=== PATIENT | male | born 1945 | race Caucasian/White ===

== ENCOUNTER 2018-06-10 07:30 | Inpatient (IN) ==
[2018-06-13] MEDS ORDERED: Metoprolol Tartrate 25 MG Tablet PO SCH (05:00)
[2018-06-13] MEDS ORDERED: Heparin - SQ 10,000 UNITS/ML Vial ONE ×2 (06:16)
[2018-06-13] MEDS ORDERED: MethylPREDNISolone Sod Succinate Inj 125 MG/2 ML Vial ONE (06:16)
[2018-06-13] MEDS ORDERED: Metoprolol Tartrate 25 MG Tablet PO ONE (06:57)
[2018-06-13] MEDS ORDERED: Chlorhexidine Gluconate 2% 1 Pack (2 Cloths) TOPICAL ONE (06:57)
[2018-06-13] MEDS ORDERED: Sodium Chlor 0.9% Inj 500 ML IV.SIG SCH (07:00)
[2018-06-13] MEDS ORDERED: Dextrose 50% in Water 50 ML Vial IV.PUSH PRN ×2 (07:01→12:15)
[2018-06-13] MEDS ORDERED: Insulin Regular (For Infusion) 100 UNIT in Sodium Chlor 0.9% Inj 99 ML IV.CONT PRN ×2 (07:01→12:15)
[2018-06-13] MEDS ORDERED: Chlorhexidine 4% Topical 120 APPLIC/120 ML Bottle TOPICAL SCH (07:15)
[2018-06-13] MEDS ORDERED: Sodium Chloride 0.9% Irr Bot 500 ML, ceFAZolin Inj 500 MG IRRIGATION SCH ×2 (07:15)
[2018-06-13] MEDS ORDERED: Sodium Chlor 0.9% Inj 77.5 ML, Papaverine Inj 60 MG, Nitroglycerin Inj 100 MCG, dilTIAZ... IRRIGATION SCH ×3 (07:15)
[2018-06-13] MEDS ORDERED: Cardioplegic Irr Soln 2,000 ML IRRIGATION ONE (07:27)
[2018-06-13] MEDS ORDERED: Potassium Chloride Inj 40 MEQ/20 ML Vial ONE (07:29)
[2018-06-13] MEDS ORDERED: Albumin Human 25% Inj 50 ML IV.SIG ONE (07:30)
[2018-06-13] MEDS ORDERED: Heparin 10,000 UNITS/10 ML Vial (for IV use) ONE (07:30)
[2018-06-13] MEDS ORDERED: fentaNYL Citrate Inj 1,000 MCG/20 ML Vial ONE (07:44)
[2018-06-13] MEDS ORDERED: Sugammadex Inj 200 MG/2 ML Vial IV.PUSH ONE (07:44)
[2018-06-13 07:48] LABS: Calcium 8.4 mg/dL (8.5-10.1); Carbon Dioxide 27.8 meq/L (21.0-32.0); Potassium 4.1 meq/L (3.5-5.1)
[2018-06-13] MEDS ORDERED: ceFAZolin Inj 2,000 MG in Sodium Chlor 0.9% Inj 80 ML IV.SIG SCH (08:00)
[2018-06-13] MEDS ORDERED: Calcium Chloride Inj 1 GM/10 ML Syringe IV.PUSH ONE (08:27)
[2018-06-13] MEDS ORDERED: Dexmedetomidine Inj 200 MCG/2 ML Vial IV.CONT ONE (08:27)
[2018-06-13] MEDS ORDERED: Sodium Chlor 0.9% Inj 200 ML IV.SIG ONE (08:27)
[2018-06-13] MEDS ORDERED: Heparin - SQ 10,000 UNITS/ML Vial OTHER ONE (08:27)
[2018-06-13] MEDS ORDERED: Tranexamic Acid Inj 1,000 MG/10 ML Ampul IV.PUSH ONE (08:27)
[2018-06-13] MEDS ORDERED: Phenylephrine/NS 1000 MCG/10ML Syringe IV.PUSH ONE (08:27)
[2018-06-13] MEDS ORDERED: Sodium Bicarbonate 8.4% Inj 50 MEQ/50 ML Syringe IV.CONT ONE (08:27)
[2018-06-13] MEDS ORDERED: SODIUM CHLOR 0.9% IV.SIG ONE (08:27)
[2018-06-13] MEDS ORDERED: Sodium Chlor 0.9% Inj 500 ML IV.SIG ONE (08:27)
[2018-06-13] MEDS ORDERED: Protamine Sulfate Inj 50 MG/5 ML Vial IV.CONT ONE (08:27)
[2018-06-13] MEDS ORDERED: fentaNYL Citrate Inj 250 MCG/5 ML Ampul ONE (09:46)
[2018-06-13] MEDS ORDERED: Protamine Sulfate Inj 50 MG/5 ML Vial ONE (11:21)
[2018-06-13] MEDS ORDERED: Baclofen 10 MG Tablet PO PRN (12:12)
[2018-06-13] MEDS ORDERED: Metoprolol Inj 5 MG/5 ML Vial IV.PUSH PRN (12:15)
[2018-06-13] MEDS ORDERED: Potassium Chlor 20 mEq Premix 20 MEQ/100 ML PIGGYBACK IV.SIG PRN ×3 (12:15)
[2018-06-13] MEDS ORDERED: RESP: Racemic Epinephrine 2.25% 0.5 ML Neb NEB PRN (12:15)
[2018-06-13] MEDS ORDERED: Dexmedetomidine Inj 200 MCG in Sodium Chlor 0.9% Inj 48 ML IV.CONT PRN (12:15)
[2018-06-13] MEDS ORDERED: Clevidipine Inj 25 MG/50 ML VIAL IV.CONT PRN (12:15)
[2018-06-13] MEDS ORDERED: Calcium Chloride Inj 1 GM/10 ML Syringe IV.PUSH PRN (12:15)
[2018-06-13] MEDS ORDERED: Post-op Orders (for Pharmacy) OTHER STA (12:15)
--- NOTE | 2018-06-13 12:29 | P.OP ---
- Preoperative Diagnosis (1) CAD (coronary artery disease) (2) Angina pectoris - Postoperative Diagnosis (1) Angina pectoris (2) CAD (coronary artery disease) Date of procedure: 06/13/18 Procedure: CABG x 3 LOZA to LAD - poor SVG to OM1 - fair SVG to PDA - good EVH Anesthesia: TREVON Surgeon: Ellyn Suh MD Mentally Impaired Teacher: Lachelle Avila Pathology: none sent Operation and Findings: The risks, benefits, complications, treatment options, and expected outcomes were discussed with the patient. The possibilities of reaction to medication, pulmonary aspiration, perforation of viscus, bleeding, recurrent infection, the need for additional procedures, failure to diagnose a condition, and creating a complication requiring transfusion or operation were discussed with the patient. The patient concurred with the proposed plan, giving informed consent. The site of surgery properly noted/marked. The patient was taken to Operating Room, identified as Albaro Carlos and the procedure verified as CABG, EVH. A Time Out was held and the above information confirmed. Standard monitoring lines and Escobar catheter were placed. General anesthesia was induced. The patient was prepped and draped in a sterile fashion. A median sternotomy was performed and electrocautery was used to obtain hemostasis. The left internal mammary artery was procured as a pedicle from the 7th rib to the 1st rib in the usual manner. Simultaneously left greater saphenous vein was procured from the left leg using a minimally invasive endoscopic technique. The vein was prepared for anastomosis and the leg wound was irrigated and closed in 2 layers. The pericardium was opened and a pericardial sling was created using interrupted 0 silk sutures. The patient was heparinized for cardiopulmonary bypass and the distal mammary pedicle was instrumented for anastomosis. The heart was instrumented for cardiopulmonary bypass in the usual manner. Antegrade blood cardioplegia was employed. The patient was placed on cardiopulmonary bypass. An aortic cross-clamp was applied and the heart was arrested using cold blood cardioplegia. Antegrade cardioplegia was administered after he each anastomosis. After adequate arrest, the distal right coronary circulation was investigated and the PDA was opened with a Sandgap blade and found to be a 1.5 millimeter good target. Saphenous vein was approximated to the PDA artery using a running 7 0 Prolene suture. The graft was measured for length and orientation and the proximal anastomosis was constructed to the ascending aorta using a running 5 0 Prolene suture after creating an aortotomy with a 5 millimeter punch. The 1st circumflex marginal artery was then opened with a Sandgap blade and found to be a 1.5 millimeter fair target. Saphenous vein was approximated to the OM1 artery using a running 7 0 Prolene suture. The graft was measured for length and orientation and was suspended from the pericardium. The distal LAD was opened with a Sandgap blade and found to be a 1 millimeter poor target. The left internal mammary artery was approximated to the LAD using a running 7 0 Prolene suture. The pedicle was attached to the epicardium using interrupted 5 0 silk suture. The patient was systemically rewarmed and received a hotshot dose of warm blood cardioplegia. The aorta was vented and the proximal anastomosis to the OM1 graft was accomplished using a running 5 0 Prolene suture after creating an aortotomy was a 5 millimeter punch. The cross-clamp was removed and all proximal and distal anastomoses were examined for hemostasis. The patient was weaned from cardiopulmonary bypass. Protamine was given. There was no adverse reaction. Decannulation was carried out without incident. Wound was checked for hemostasis which was obtained using electrocautery. A 36 Ivorian mediastinal and 32 Ivorian left pleural chest tubes were placed and secured to the skin with 0 silk suture. The sternum was closed with stainless steel wire. The fascia was closed with 1. PDS. The subcutaneous tissue was closed using a running 2-0 Vicryl suture. The skin was closed with 4-0 Monocryl. Sterile dressings were placed. At the end of the operation, all sponge, instruments, and needle counts were correct. The patient was transferred to the CVICU in stable condition. Findings: diffuse CAD XC: 52 min CPB: 60 min Drains: mediastinal x 1 pleural x 1 Complications: none Disposition: to CVICU in stable condition
[2018-06-13] MEDS: Albumin Human 5% Inj 250 ML IV.SIG PRN ×2 (13:31→17:48)
--- NOTE | 2018-06-13 14:08 | P.PNCV ---
- Note Subjective/Hospital Course: 72-year-old male / initially seen 05/29/[address] Mathew Sandoval and Dr. Wang Joiner, who has had a history of some recurrent palpitations for a few seconds, happening mostly at night, waking him up from his sleep, this was going on for the last couple of months. 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 The patient underwent further workup, which included a cardiac catheterization that showed an EF of 60%, mid distal LAD 95%, the OM 100 %, the RCA 100%. We were consulted to evaluate for coronary artery bypass grafting. The patient's cardiac risk factors include age, obesity, sedentary lifestyle, noninsulin dependent diabetes mellitus, hypertension, hyperlipidemia. PAST MEDICAL HISTORY: Non-insulin dependent diabetes mellitus, diet controlled, history of colon cancer post-resection, ulcerative colitis diagnosed in 1977, esophageal stricture post-dilation, history of possible obstructive sleep apnea , he refuses to wear a CPAP machine, peripheral premature ventricular contractions. pt electively admitted today for surgery surgery: Date of procedure: 06/13/18 Procedure: CABG x 3 LOZA to LAD - poor SVG to OM1 - fair SVG to PDA - good EVH Objective: Vital Signs - 24 hr 06/13/18 07:05 Temperature 98.1 F Pulse Rate 76 Respiratory Rate 22 Blood Pressure 148/79 H Pulse Oximetry 96 Labs: Laboratory Results - last 12 hr 06/13/18 06/13/18 07:12 07:12 Sodium 141 Potassium 4.1 Chloride 103 Carbon Dioxide 27.8 Anion Gap 10 BUN 38 H Creatinine 1.75 H Estimated GFR 38 L Random Glucose 158 H Calcium 8.4 L Blood Type A Positive Antibody Screen Negative MTS Gel Crossmatch See Detail Result Diagrams: 06/13/18 07:12 - Plan (3) Diabetes mellitus (3) Diabetes mellitus Qualifiers: Diabetes mellitus type: type 2
[2018-06-13] MEDS: Calcium Chloride Inj 1 GM in Sodium Chlor 0.9% Inj 100 ML IV.SIG PRN ×2 (14:23→20:59)
--- NOTE | 2018-06-13 14:23 | XR ---
EXAM DATE: 06/13/2018 1:58 PM EDT AGE/SEX: 72 years / Male INDICATIONS: Post op CABG. CLINICAL DATA: This is the patient's initial encounter. Patient reports that signs and symptoms have been present for 1 day and indicates a pain score of Nonresponsive. MEDICAL/SURGICAL HISTORY: None. None. COMPARISON: [facility], CHEST 1V SINGLE AP, 05/29/2018. . FINDINGS: Endotracheal tube is present in good position with tip 8 cm above the michael. Nasogastric tube descen ds into the abdomen. Thoracostomy tubes are present. There is no evidence of pneumothorax. Left subcl nicolas sheath and central catheter are present in good position. There is mild basilar parenchymal opa city which may be some atelectasis. Area contours are grossly satisfactory. Sternotomy wires are note d. CONCLUSION: Satisfactory postop appearance. Electronically signed by: Reji Rodriguez MD 06/13/2018 2:22 PM EDT
--- NOTE | 2018-06-13 14:24 | P.DCO ---
- Diagnosis (2) Diabetes mellitus - Home Health Aide Instructions: Heart and Vascular Surgery patients *Special attention to sternal dressing Mandatory frequency Assess and evaluation, 4 days in a row The next week 3X week 2 times a week for 4 weeks 1 time a week for 5 weeks Schedule Heart and Vascular patients for full 60 day certification period Initial visit Review Open Heart Surgery Discharge Instructions (Sternal precautions, Activity, Elastic hose, Incision care, Driving, Incentive spirometry, Smoking, Nicol[place], Work and other) Need Betadine to paint incision Medication reconciliation Importance of follow up care/ check on appointments Make calendar record temperature daily When to call [facility] nurse, review instructions, phone list Incentive Spirometry, demonstration Visit 1- Begin discharge instruction for patient family and/ or caregiver using teach back method- Signs and symptoms of infection Disease characteristics Medicines and side effects Foods and nutrition/ appetite Infection control/ hand washing/ hygiene Visit 2- Continue teaching Discharge instructions- include additional information on smoking cessation , sternal dressing (sternal vac) Visit 3- Continue teaching- Cough and deep breathing, incision monitoring. Choose my plate Visit 4- Continue teaching- Discuss limitations Discuss how they are feeling Discuss progress toward goals Remaining visits- continue teaching and monitoring For any questions please call : Sunday 8am-5pm Heart & Vascular Surgery Office ( Dr. Hwang & Dr. Suh), After Hours / Nights (5pm -8am) Weekends and Holidays Please call [facility] Cardiac Intermediate Care Unit (CIC) Charge Nurse PREVENA Single Use Negative Wound Therapy System Caregiver Instruction Sheet 1. A Prevena dressing system was applied to the chest incision during surgery , to promote wound healing. It works via a suction device (negative pressure wound therapy) to remove low to moderate levels of exudate (drainage) and infectious materials. We recommend that the device stay in place for up to seven days, from day of surgery. 2. Day of Surgery____/ Day of Removal __06/20/18 3. The dressing should only be removed by a health med care manager. Please arrange removal of device to coincide with Home Health visit and or with Nursing staff at Rehab 4. If skin reddening or irritation of skin occurs, or excessive drainage, please notify the Cardiovascular Surgeons office at [phone]. 5. Light showering is permissible; however the pump should be disconnected and placed in safe location, where it will not get wet. The dressing should not be exposed to direct spray or submerged in water. No bath tub / shower only. Ensure the end of the tubing attached to the dressing is facing down so that water does not enter the top of the tube. 6. To remove Prevena dressing: press purple button to turn off device / remove the suction. Then disconnect the tubing from the pump. The fixation strips should be stretched away from the skin and the dressing lifted at one corner and peeled back until it has been fully removed. 7. After removal, it is ok to shower daily using liquid dial soap and clean wash cloth, rinse and pat dry, and leave incision open to air dry. For any concerns regarding Prevena dressing, and or wounds, please contact Alisia Henry, patient navigator at [phone] or notify the Cardiovascular Surgeons office at [phone]. Incentive spirometry Q1 hr x 10, while awake, also use acapella device hourly whole awake Sternal Breast Bone Precautions: NO pushing or pulling, ( pt must use sternal pillow to support chest with all activities and with coughing ( takes up to 3 months breast bone to heal ) Daily incision care: ok to shower daily, no tub bath. Wash all incisions with liquid dial soap, clean wash cloth to each site, rinse and pat dry. Observe for any signs of infection, such as drainage which is dark yellow, baez, green or foul smelling. Immediately report to the surgeon any drainage from the chest incision, or legs, and for any abnormal drainage from the chest tube sites. Notify surgeon if any temp >101.5 degrees F. When specialty dressing removed/ or if you do not have one, continue to shower daily as above, then rinse and pat incision dry and paint with betadine daily x 5 days. Allow steri strips to fall off if you have any. Avoid lotions, creams, salves, oils, etc. for the first month Please see attached forms for additional instructions regarding post Open Heart specialty wound vacuum dressings. [place] or Prevena , Dressing to be removed by Nursing staff on ___06/20/18____ For Dr. Suh patients , please obtain CBC, BMP, PA & Lat CXR in 2 weeks, results to Dr. Suh ( prescription will be given) ( ) (Tele: [phone]) , F/U appointment: as per [place] instructions: PCP in 2 weeks, CV surgeon 2 weeks, Sizing Machine Tender 3-4 weeks For any questions regarding incisions/ dressing / meds / post op care or above Symptoms, Sunday 8am-5pm Heart & Vascular Surgery Office ( Dr. Hwang & Dr. Suh), After Hours / Nights (5pm -8am) Weekends and Holidays Please call [facility] Cardiac Intermediate Care Unit (CIC) Charge Nurse - Certification I have seen patient Albaro Carlos on 06/13/18. My clinical findings support the need for the requested home health care services because: Deconditioned with increased weakness I certify that my clinical findings support that this patient is homebound because: Post-op weakness (2) Diabetes mellitus Qualifiers: Diabetes mellitus type: type 2
[2018-06-13] MEDS: Amiodarone 200 MG Tablet PO SCH ×2 (14:43→22:23)
[2018-06-13] MEDS ORDERED: Magnesium Sulfate Inj 2 GM in Sodium Chlor 0.9% Inj 96 ML IV.SIG PRN ×4 (15:00)
[2018-06-13] MEDS: fentaNYL Citrate Inj 100 MCG/2 ML Ampul IV.PUSH PRN (15:39)
[2018-06-13] MEDS: Hydrocortisone 2.5% Cream 30 GM Tube TOPICAL SCH ×2 (21:00→23:59)
[2018-06-14 05:00] LABS: Hemoglobin 11.1 gm/dL (13.0-17.0); Mean Corpuscular HGB Conc 34.8 % (32.0-36.0); Mean Corpuscular Volume 100.7 fL (80.0-100.0); Mean Platelet Volume 7.2 fL (7.0-11.0); Platelet Count 110 th/mm3 (150-450); Red Blood Count 3.18 mil/mm3 (4.50-5.90); Red Cell Distribution Width 14.3 % (11.6-17.2); White Blood Count 13.3 th/mm3 (4.0-11.0)
[2018-06-14 05:24] LABS: Calcium 7.9 mg/dL (8.5-10.1); Carbon Dioxide 27.5 meq/L (21.0-32.0); Magnesium 2.6 mg/dL (1.5-2.5)
--- NOTE | 2018-06-14 06:01 | XR ---
EXAM DATE: 06/14/2018 5:38 AM EDT AGE/SEX: 72 years / Male INDICATIONS: Post op CABG CLINICAL DATA: This is the patient's subsequent encounter. Patient reports that signs and symptoms h ave been present for 2 days and indicates a pain score of 3/10. MEDICAL/SURGICAL HISTORY: None. None. COMPARISON: [facility], CHEST 1V SINGLE AP, 06/13/2018. . FINDINGS: Patient has been extubated with NG tube removed. Stable mediastinal drain and left-sided chest tube w ith left subclavian central line. No significant pneumothorax with persistent pleural-parenchymal opa [place] in the left lower lung zone. Cardiomediastinal contours are stable. Remainder of exam is uncha nged. CONCLUSION: 1. Stable mediastinal drain and left-sided chest tube without pneumothorax. 2. Stable mild left lower lung zone pleural-parenchymal opacities. Electronically signed by: Jori Wills MD 06/14/2018 6:00 AM EDT
[2018-06-14] MEDS: fentaNYL Citrate Inj 100 MCG/2 ML Ampul IV.PUSH PRN (07:10)
[2018-06-14] MEDS: Amiodarone 200 MG Tablet PO SCH ×3 (07:14→21:34)
[2018-06-14] MEDS: Pantoprazole Sodium 20 MG DR Tablet PO SCH (09:43)
[2018-06-14] MEDS: Escitalopram 10 MG Tablet PO SCH (09:45)
[2018-06-14] MEDS: Ezetimibe 10 MG Tablet PO SCH (09:47)
[2018-06-14] MEDS: Hydrocortisone 2.5% Cream 30 GM Tube TOPICAL SCH ×2 (09:47→21:37)
[2018-06-14] MEDS ORDERED: Bisacodyl 10 MG Supp RECTAL PRN (09:50)
[2018-06-14] MEDS ORDERED: Sod Phosphate/Sod Biphosphate (Adult) Enema 133 ML Bottle RECTAL PRN (09:50)
[2018-06-14] MEDS ORDERED: Dextrose 50% in Water 50 ML Vial IV.PUSH PRN (09:50)
[2018-06-14] MEDS: Insulin NovoLOG Aspart Correctional Sugar Inj SQ SCH ×4 (10:43→21:34)
--- NOTE | 2018-06-14 11:56 | P.PNCV ---
- Note Subjective/Hospital Course: 72-year-old male / initially seen 05/29/[address] Mathew Sandoval and Dr. Wang Joiner, who has had a history of some recurrent palpitations for a few seconds, happening mostly at night, waking him up from his sleep, this was going on for the last couple of months. 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 The patient underwent further workup, which included a cardiac catheterization that showed an EF of 60%, mid distal LAD 95%, the OM 100 %, the RCA 100%. We were consulted to evaluate for coronary artery bypass grafting. The patient's cardiac risk factors include age, obesity, sedentary lifestyle, noninsulin dependent diabetes mellitus, hypertension, hyperlipidemia. PAST MEDICAL HISTORY: Non-insulin dependent diabetes mellitus, diet controlled, history of colon cancer post-resection, ulcerative colitis diagnosed in 1977, esophageal stricture post-dilation, history of possible obstructive sleep apnea , he refuses to wear a CPAP machine, peripheral premature ventricular contractions. pt electively admitted today for surgery surgery: Date of procedure: 06/13/18 Procedure: CABG x 3 LOZA to LAD - poor SVG to OM1 - fair SVG to PDA - good EVH extubated after surgery crystalloid 2900cc, 1130 cc/ cell saver ? 2260EBL 06/14 pt somewhat lightheaded when assisted OOB to chair BP labile earlier / improved with NS bolus remains in NSR on ASA, no statin ( statin intolerance) on zetia no BB for now with labile BP will transfer to stepdown unit aggressive pulm toileting Objective: Vital Signs - 24 hr 06/13/18 13:05 06/13/18 13:10 06/13/18 13:15 Temperature 96.5 F L 98.6 F Pulse Rate 77 Respiratory Rate 10 L 20 Blood Pressure 89/41 L Pulse Oximetry 99 99 06/13/18 13:40 06/13/18 14:00 06/13/18 15:00 Temperature 98.6 F 98.6 F Pulse Rate 70 Respiratory Rate 20 Blood Pressure 139/66 Pulse Oximetry 98 06/13/18 15:15 06/13/18 15:21 06/13/18 16:00 Temperature 97 F L Pulse Rate 79 78 Respiratory Rate 18 18 Blood Pressure 110/56 L Pulse Oximetry 96 98 96 06/13/18 19:00 06/13/18 19:48 06/13/18 20:48 Temperature 96.6 F L 97 F L Pulse Rate 80 82 Respiratory Rate 16 16 Blood Pressure 134/48 L Pulse Oximetry 97 98 06/13/18 23:00 06/14/18 03:00 06/14/18 03:19 Temperature 97.1 F L 97 F L Pulse Rate 85 70 71 Respiratory Rate 16 16 14 Blood Pressure 124/50 L 124/50 L Pulse Oximetry 97 95 06/14/18 07:00 06/14/18 10:27 06/14/18 10:29 Temperature 97.8 F Pulse Rate 82 93 H Respiratory Rate 20 18 Blood Pressure 111/54 L Pulse Oximetry 98 96 GENERAL: A&O x 3 SKIN: Warm and dry. prevena dressing to chest , ning wrap left leg HEAD: Normocephalic. EYES: No scleral icterus. No injection or drainage. NECK: Supple, trachea midline. No JVD or lymphadenopathy. CARDIOVASCULAR: Regular rate and rhythm without murmurs, gallops, or rubs. mild general edema RESPIRATORY: Breath sounds equal bilaterally. No accessory muscle use. diminished in bases / chest tube in place no air leak / drained 300cc/ 12 hrs GASTROINTESTINAL: Abdomen soft, non-tender, nondistended. Obese pt has ileostomy bag in place , liguid stool MUSCULOSKELETAL: No cyanosis, or edema. BACK: Nontender without obvious deformity. No CVA tenderness. Labs: Laboratory Results - last 12 hr 06/14/18 06/14/18 06/14/18 00:11 01:34 03:22 WBC RBC Hgb Hct MCV MCH MCHC RDW Plt Count MPV Sodium Potassium Chloride Carbon Dioxide Anion Gap BUN Creatinine Estimated GFR POC Glucose 153 H 122 H 100 Random Glucose Calcium Magnesium 06/14/18 06/14/18 06/14/18 04:05 04:35 04:35 WBC 13.3 H RBC 3.18 L Hgb 11.1 L Hct 32.0 L MCV 100.7 H MCH 35.0 H MCHC 34.8 RDW 14.3 Plt Count 110 L MPV 7.2 Sodium 142 Potassium 4.0 Chloride 106 Carbon Dioxide 27.5 Anion Gap 9 BUN 29 H Creatinine 1.30 Estimated GFR 54 L POC Glucose 106 Random Glucose 122 H Calcium 7.9 L Magnesium 2.6 H 09/14/18 09/14/18 09/14/18 05:23 06:30 10:10 WBC RBC Hgb Hct MCV MCH MCHC RDW Plt Count MPV Sodium Potassium Chloride Carbon Dioxide Anion Gap BUN Creatinine Estimated GFR POC Glucose 123 H 151 H 174 H Random Glucose Calcium Magnesium Result Diagrams: 06/14/18 04:35 06/14/18 04:35 Telemetry: NSR - Plan (1) S/P CABG x 3 Plan: on ASA, no statin ( intolerant ) , amiodarone hold BB for now was on NING at home no diuresis , additional NS bolus given x 1 OOB, PT eval for HHC at discharge transfer to [facility] (3) Diabetes mellitus Plan: pt is diet controlled, on insulin sliding scale HGB A1C 5.4 diabetic diet (4) Hyperlipidemia Plan: resume zetia (5) Hypertension Plan: no BP meds for now (6) Hx of ileostomy Plan: ileostomy care (3) Diabetes mellitus Qualifiers: Diabetes mellitus type: type 2
--- NOTE | 2018-06-14 12:06 | P.DIET ---
Nutritional Evaluation Screening comments: MDC for diet education s/p CABG x 3 on 06/13. Patient Navigator to provide education. Consult RD if complexities with diet education arise.
[2018-06-14] MEDS: Docusate Sodium 100 MG Capsule PO SCH (21:34)
[2018-06-15] MEDS: Insulin NovoLOG Aspart Correctional Sugar Inj SQ SCH ×5 (02:07→20:58)
[2018-06-15] MEDS: Amiodarone 200 MG Tablet PO SCH ×3 (05:12→21:36)
[2018-06-15 05:48] LABS: Baso % (Auto) 0.1 % (0.0-2.0); Eos % (Auto) 0.1 % (0.0-4.0); Hematocrit 28.8 % (39.0-51.0); Hemoglobin 9.7 gm/dL (13.0-17.0); Lymph # (Auto) 0.3 th/mm3 (1.0-4.8); Lymph % (Auto) 2.9 % (9.0-44.0); Mean Corpuscular HGB Conc 33.7 % (32.0-36.0); Mean Corpuscular Hemoglobin 34.5 pg (27.0-34.0); Mean Corpuscular Volume 102.1 fL (80.0-100.0); Mean Platelet Volume 7.5 fL (7.0-11.0); Mono # (Auto) 1.2 th/mm3 (0.0-0.9); Mono % (Auto) 9.7 % (0.0-8.0); Neut # (Auto) 10.4 th/mm3 (1.8-7.7); Neut % (Auto) 87.2 % (16.0-70.0); Platelet Count 105 th/mm3 (150-450); Red Blood Count 2.82 mil/mm3 (4.50-5.90); Red Cell Distribution Width 14.4 % (11.6-17.2); White Blood Count 11.9 th/mm3 (4.0-11.0)
[2018-06-15 06:19] LABS: Calcium 7.5 mg/dL (8.5-10.1); Carbon Dioxide 29.2 meq/L (21.0-32.0); Magnesium 2.5 mg/dL (1.5-2.5); Potassium 3.8 meq/L (3.5-5.1)
[2018-06-15] MEDS: Pantoprazole Sodium 20 MG DR Tablet PO SCH (10:17)
[2018-06-15] MEDS: Multivitamin/Minerals Therapeutic Tablet PO SCH (10:17)
[2018-06-15] MEDS: Escitalopram 10 MG Tablet PO SCH (10:17)
[2018-06-15] MEDS: Docusate Sodium 100 MG Capsule PO SCH ×2 (10:17→20:50)
[2018-06-15] MEDS: Ezetimibe 10 MG Tablet PO SCH (10:17)
[2018-06-15] MEDS: Polyethylene Glycol 3350 17 GM Packet PO SCH (10:18)
[2018-06-15] MEDS: Hydrocortisone 2.5% Cream 30 GM Tube TOPICAL SCH ×2 (10:18→22:53)
--- NOTE | 2018-06-15 11:15 | P.PNCV ---
- Note CVT: Post Op Day #: 2 Subjective/Hospital Course: 72-year-old male / initially seen 05/29/[address] Mathew Sandoval and Dr. Wang Joiner, who has had a history of some recurrent palpitations for a few seconds, happening mostly at night, waking him up from his sleep, this was going on for the last couple of months. 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 The patient underwent further workup, which included a cardiac catheterization that showed an EF of 60%, mid distal LAD 95%, the OM 100 %, the RCA 100%. We were consulted to evaluate for coronary artery bypass grafting. The patient's cardiac risk factors include age, obesity, sedentary lifestyle, noninsulin dependent diabetes mellitus, hypertension, hyperlipidemia. PAST MEDICAL HISTORY: Non-insulin dependent diabetes mellitus, diet controlled, history of colon cancer post-resection, ulcerative colitis diagnosed in 1977, esophageal stricture post-dilation, history of possible obstructive sleep apnea , he refuses to wear a CPAP machine, peripheral premature ventricular contractions. pt electively admitted today for surgery surgery: Date of procedure: 06/13/18 Procedure: CABG x 3 LOZA to LAD - poor SVG to OM1 - fair SVG to PDA - good EVH extubated after surgery crystalloid 2900cc, 1130 cc/ cell saver ? [id number] 06/14 pt somewhat lightheaded when assisted OOB to chair BP labile earlier / improved with NS bolus remains in NSR on ASA, no statin ( statin intolerance) on zetia no BB for now with labile BP will transfer to stepdown unit aggressive pulm toileting 06/15/18 Improved today, ambulating with assist c/o irritation from chest tubes Objective: Vital Signs - 24 hr 06/14/18 11:15 06/14/18 14:22 06/14/18 15:00 Temperature 99.1 F 97.8 F Pulse Rate 99 H 91 H 94 H Respiratory Rate 18 18 18 Blood Pressure 93/55 L 97/52 L Pulse Oximetry 94 L 95 06/14/18 15:35 06/14/18 19:00 06/14/18 19:47 Temperature 98.3 F Pulse Rate 93 H 78 Respiratory Rate 14 18 20 Blood Pressure 121/56 L Pulse Oximetry 93 L 97 06/14/18 20:00 06/14/18 21:00 06/14/18 22:00 Temperature Pulse Rate 90 95 H 97 H Respiratory Rate Blood Pressure Pulse Oximetry 06/14/18 22:45 06/14/18 23:00 06/15/18 00:00 Temperature 98.3 F Pulse Rate 97 H 98 H 96 H Respiratory Rate 18 Blood Pressure 106/59 L Pulse Oximetry 94 L 06/15/18 01:00 06/15/18 02:00 06/15/18 02:58 Temperature 97.9 F Pulse Rate 94 H 97 H 108 H Respiratory Rate 18 Blood Pressure 119/55 L Pulse Oximetry 98 06/15/18 03:00 06/15/18 04:00 06/15/18 05:00 Temperature Pulse Rate 96 H 97 H 95 H Respiratory Rate 18 Blood Pressure Pulse Oximetry 06/15/18 05:45 06/15/18 07:00 06/15/18 08:27 Temperature 98.4 F Pulse Rate 65 93 H 90 Respiratory Rate 17 18 Blood Pressure 132/60 Pulse Oximetry 97 96 Labs: Laboratory Results - last 12 hr 06/15/18 06/15/18 06/15/18 05:00 05:00 08:08 WBC 11.9 H RBC 2.82 L Hgb 9.7 L Hct 28.8 L MCV 102.1 H MCH 34.5 H MCHC 33.7 RDW 14.4 Plt Count 105 L MPV 7.5 Neut % (Auto) 87.2 H Lymph % (Auto) 2.9 L Bent % (Auto) 9.7 H Eos % (Auto) 0.1 Baso % (Auto) 0.1 Neut # (Auto) 10.4 H Lymph # (Auto) 0.3 L Bent # (Auto) 1.2 H Eos # (Auto) 0.0 Baso # (Auto) 0.0 WBC Differential . Differential Comment Auto diff final Sodium 141 Potassium 3.8 Chloride 104 Carbon Dioxide 29.2 Anion Gap 8 BUN 29 H Creatinine 1.54 H Estimated GFR 45 L POC Glucose 120 H Random Glucose 123 H Calcium 7.5 L Magnesium 2.5 Result Diagrams: 06/15/18 05:00 06/15/18 05:00 Imaging: Chest X-Ray 06/14/18 05:00 CONCLUSION: 1. Stable mediastinal drain and left-sided chest tube without pneumothorax. 2. Stable mild left lower lung zone pleural-parenchymal opacities. Cardiovascular: RRR Telemetry: NSR Pulmonary: CTA GI/: decreased BS Incision: dry and intact CT: 160ml/12hrs - Plan (1) S/P CABG x 3 Plan: on ASA, no statin ( intolerant ) , amiodarone hold BB for now was on NING at home no diuresis , additional NS bolus given x 1 OOB, PT eval for HHC at discharge transfer to [facility] (3) Diabetes mellitus Plan: pt is diet controlled, on insulin sliding scale HGB A1C 5.4 diabetic diet (4) Hyperlipidemia Plan: resume zetia (5) Hypertension Plan: no BP meds for now (6) Hx of ileostomy Plan: ileostomy care Diurese Increase ambulation, up to chair PT Decrease xanax dose Continue chest tubes one more day Chest tube to water seal (3) Diabetes mellitus Qualifiers: Diabetes mellitus type: type 2
[2018-06-15] MEDS: ALPRAZolam 0.5 MG Tablet PO SCH (20:50)
[2018-06-16] MEDS: Amiodarone 200 MG Tablet PO SCH ×3 (06:31→21:04)
[2018-06-16] MEDS: Escitalopram 10 MG Tablet PO SCH (08:43)
[2018-06-16] MEDS: Hydrocortisone 2.5% Cream 30 GM Tube TOPICAL SCH ×2 (08:44→21:03)
[2018-06-16] MEDS: Multivitamin/Minerals Therapeutic Tablet PO SCH (08:44)
[2018-06-16] MEDS: ALPRAZolam 0.5 MG Tablet PO SCH ×2 (08:44→20:48)
[2018-06-16] MEDS: Docusate Sodium 100 MG Capsule PO SCH ×2 (08:44→20:48)
[2018-06-16] MEDS: Polyethylene Glycol 3350 17 GM Packet PO SCH (08:44)
[2018-06-16] MEDS: Pantoprazole Sodium 20 MG DR Tablet PO SCH (08:44)
[2018-06-16] MEDS: Ezetimibe 10 MG Tablet PO SCH (08:44)
[2018-06-16] MEDS: Insulin NovoLOG Aspart Correctional Sugar Inj SQ SCH ×4 (09:00→21:02)
--- NOTE | 2018-06-16 11:00 | P.PNCV ---
- Note CVT: Post Op Day #: 3 Subjective/Hospital Course: 72-year-old male / initially seen 05/29/[address] Mathew Sandoval and Dr. Wang Joiner, who has had a history of some recurrent palpitations for a few seconds, happening mostly at night, waking him up from his sleep, this was going on for the last couple of months. 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 The patient underwent further workup, which included a cardiac catheterization that showed an EF of 60%, mid distal LAD 95%, the OM 100 %, the RCA 100%. We were consulted to evaluate for coronary artery bypass grafting. The patient's cardiac risk factors include age, obesity, sedentary lifestyle, noninsulin dependent diabetes mellitus, hypertension, hyperlipidemia. PAST MEDICAL HISTORY: Non-insulin dependent diabetes mellitus, diet controlled, history of colon cancer post-resection, ulcerative colitis diagnosed in 1977, esophageal stricture post-dilation, history of possible obstructive sleep apnea , he refuses to wear a CPAP machine, peripheral premature ventricular contractions. pt electively admitted today for surgery surgery: Date of procedure: 06/13/18 Procedure: CABG x 3 LOZA to LAD - poor SVG to OM1 - fair SVG to PDA - good EVH extubated after surgery crystalloid 2900cc, 1130 cc/ cell saver ? 2260EBL 06/14 pt somewhat lightheaded when assisted OOB to chair BP labile earlier / improved with NS bolus remains in NSR on ASA, no statin ( statin intolerance) on zetia no BB for now with labile BP will transfer to stepdown unit aggressive pulm toileting 06/15/18 Improved today, ambulating with assist c/o irritation from chest tubes 06/16/18 Chest tube output continues to be copious c/o incisional pain Objective: Vital Signs - 24 hr 06/15/18 11:00 06/15/18 12:00 06/15/18 13:00 Temperature Pulse Rate 99 H 92 H 103 H Respiratory Rate Blood Pressure Pulse Oximetry 06/15/18 14:00 06/15/18 15:00 06/15/18 20:00 Temperature 99.2 F 98.7 F Pulse Rate 99 H 105 H 98 H Respiratory Rate 16 18 Blood Pressure 102/58 L 102/55 L Pulse Oximetry 92 L 95 06/15/18 20:22 06/15/18 21:00 06/15/18 22:00 Temperature Pulse Rate 89 89 Respiratory Rate Blood Pressure Pulse Oximetry 96 06/15/18 23:00 06/15/18 23:30 06/16/18 00:00 Temperature 98 F Pulse Rate 88 88 83 Respiratory Rate 18 Blood Pressure 132/59 L Pulse Oximetry 95 06/16/18 01:00 06/16/18 02:00 06/16/18 03:00 Temperature 98.4 F Pulse Rate 86 87 84 Respiratory Rate 19 Blood Pressure 118/56 L Pulse Oximetry 95 06/16/18 04:00 06/16/18 05:00 06/16/18 06:00 Temperature Pulse Rate 84 87 80 Respiratory Rate Blood Pressure Pulse Oximetry 06/16/18 07:00 06/16/18 08:16 Temperature 98.0 F Pulse Rate 81 71 Respiratory Rate 17 18 Blood Pressure 137/63 Pulse Oximetry 121 H 95 Labs: Laboratory Results - last 12 hr 06/13/18 06/16/18 07:12 07:25 POC Glucose 121 H MTS Gel Crossmatch See Detail Result Diagrams: 06/15/18 05:00 06/15/18 05:00 Imaging: Chest X-Ray 06/14/18 05:00 CONCLUSION: 1. Stable mediastinal drain and left-sided chest tube without pneumothorax. 2. Stable mild left lower lung zone pleural-parenchymal opacities. Cardiovascular: RRR Telemetry: NSR Pulmonary: CTA GI/: NABS Incision: dry and intact CT: ~290ml since 1899 last night - Plan (1) S/P CABG x 3 Plan: on ASA, no statin ( intolerant ) , amiodarone hold BB for now was on NING at home no diuresis , additional NS bolus given x 1 OOB, PT eval for HHC at discharge transfer to [facility] (3) Diabetes mellitus Plan: pt is diet controlled, on insulin sliding scale HGB A1C 5.4 diabetic diet (4) Hyperlipidemia Plan: resume zetia (5) Hypertension Plan: no BP meds for now (6) Hx of ileostomy Plan: ileostomy care Encourage ambulation Start BB continue chest tubes Diurese (3) Diabetes mellitus Qualifiers: Diabetes mellitus type: type 2
[2018-06-16] MEDS: Metoprolol Tartrate 25 MG Tablet PO SCH ×2 (12:40→20:48)
[2018-06-17 05:24] LABS: Hematocrit 26.5 % (39.0-51.0); Mean Corpuscular Hemoglobin 34.8 pg (27.0-34.0); Mean Corpuscular Volume 102.5 fL (80.0-100.0); Mean Platelet Volume 7.6 fL (7.0-11.0); Platelet Count 102 th/mm3 (150-450); Red Blood Count 2.58 mil/mm3 (4.50-5.90); Red Cell Distribution Width 14.2 % (11.6-17.2)
[2018-06-17 05:49] LABS: Calcium 7.6 mg/dL (8.5-10.1); Carbon Dioxide 35.2 meq/L (21.0-32.0)
[2018-06-17] MEDS: Amiodarone 200 MG Tablet PO SCH ×3 (06:02→22:46)
[2018-06-17] MEDS: Insulin NovoLOG Aspart Correctional Sugar Inj SQ SCH ×5 (08:14→20:33)
[2018-06-17] MEDS: Docusate Sodium 100 MG Capsule PO SCH ×2 (08:15→20:33)
[2018-06-17] MEDS: Escitalopram 10 MG Tablet PO SCH (08:16)
[2018-06-17] MEDS: Multivitamin/Minerals Therapeutic Tablet PO SCH (08:16)
[2018-06-17] MEDS: ALPRAZolam 0.5 MG Tablet PO SCH ×2 (08:16→20:32)
[2018-06-17] MEDS: Pantoprazole Sodium 20 MG DR Tablet PO SCH (08:17)
[2018-06-17] MEDS: Metoprolol Tartrate 25 MG Tablet PO SCH ×2 (08:17→20:33)
[2018-06-17] MEDS: Ezetimibe 10 MG Tablet PO SCH (08:17)
[2018-06-17] MEDS: Polyethylene Glycol 3350 17 GM Packet PO SCH (08:18)
[2018-06-17] MEDS: Hydrocortisone 2.5% Cream 30 GM Tube TOPICAL SCH ×2 (08:21→20:33)
[2018-06-17 09:31] LABS: Magnesium 2.1 mg/dL (1.5-2.5); Phosphorus 2.9 mg/dL (2.5-4.9)
[2018-06-17] MEDS ORDERED: Potassium Chloride 25 MEQ Effervescent Tablet PO ONE (10:00)
--- NOTE | 2018-06-17 13:28 | P.PNCV ---
- Note Subjective/Hospital Course: 72-year-old male / initially seen 05/29/[address] Mathew Sandoval and Dr. Wang Joiner, who has had a history of some recurrent palpitations for a few seconds, happening mostly at night, waking him up from his sleep, this was going on for the last couple of months. 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 The patient underwent further workup, which included a cardiac catheterization that showed an EF of 60%, mid distal LAD 95%, the OM 100 %, the RCA 100%. We were consulted to evaluate for coronary artery bypass grafting. The patient's cardiac risk factors include age, obesity, sedentary lifestyle, noninsulin dependent diabetes mellitus, hypertension, hyperlipidemia. PAST MEDICAL HISTORY: Non-insulin dependent diabetes mellitus, diet controlled, history of colon cancer post-resection, ulcerative colitis diagnosed in 1977, esophageal stricture post-dilation, history of possible obstructive sleep apnea , he refuses to wear a CPAP machine, peripheral premature ventricular contractions. pt electively admitted today for surgery surgery: Date of procedure: 06/13/18 Procedure: CABG x 3 LOZA to LAD - poor SVG to OM1 - fair SVG to PDA - good EVH extubated after surgery crystalloid 2900cc, 1130 cc/ cell saver ? 2260EBL 06/14 pt somewhat lightheaded when assisted OOB to chair BP labile earlier / improved with NS bolus remains in NSR on ASA, no statin ( statin intolerance) on zetia no BB for now with labile BP will transfer to stepdown unit aggressive pulm toileting 06/15/18 Improved today, ambulating with assist c/o irritation from chest tubes 06/16/18 Chest tube output continues to be copious c/o incisional pain 06/17/18 chest tube dc without difficulty on room air eval for rehab at discharge no statin 2/2 intolerance Objective: Vital Signs - 24 hr 06/16/18 14:00 06/16/18 15:00 06/16/18 16:00 Temperature 97.3 F L Pulse Rate 84 73 74 Respiratory Rate 17 Blood Pressure 105/60 Pulse Oximetry 94 L 06/16/18 16:12 06/16/18 17:00 06/16/18 19:00 Temperature 98.6 F Pulse Rate 81 81 Respiratory Rate 16 22 Blood Pressure 100/48 L Pulse Oximetry 93 L 06/16/18 20:23 06/16/18 23:00 06/17/18 02:00 Temperature 97.9 F Pulse Rate 79 78 70 Respiratory Rate 18 18 Blood Pressure 104/55 L Pulse Oximetry 93 L 95 06/17/18 03:00 06/17/18 04:00 06/17/18 05:00 Temperature 98.3 F Pulse Rate 72 69 66 Respiratory Rate 20 Blood Pressure 96/51 L Pulse Oximetry 95 06/17/18 06:00 06/17/18 07:00 06/17/18 08:00 Temperature 97.5 F L Pulse Rate 70 66 81 Respiratory Rate 16 Blood Pressure 113/57 L Pulse Oximetry 93 L 06/17/18 08:33 06/17/18 09:00 06/17/18 09:18 Temperature Pulse Rate 85 Respiratory Rate 18 Blood Pressure Pulse Oximetry 94 L 06/17/18 10:00 06/17/18 11:00 06/17/18 12:00 Temperature 98.5 F Pulse Rate 76 74 80 Respiratory Rate 17 Blood Pressure 100/50 L Pulse Oximetry 94 L 06/17/18 13:00 Temperature Pulse Rate 81 Respiratory Rate Blood Pressure Pulse Oximetry GENERAL: A&O x 3 SKIN: Warm and dry. prevena dressing to chest , incision intact to left leg / ecchymosis left groin and leg HEAD: Normocephalic. EYES: No scleral icterus. No injection or drainage. NECK: Supple, trachea midline. No JVD or lymphadenopathy. CARDIOVASCULAR: Regular rate and rhythm without murmurs, gallops, or rubs. mild lower ext edema RESPIRATORY: Breath sounds equal bilaterally. No accessory muscle use. GASTROINTESTINAL: Abdomen soft, non-tender, nondistended. obese soft MUSCULOSKELETAL: No cyanosis, or edema. BACK: Nontender without obvious deformity. No CVA tenderness. Labs: Laboratory Results - last 12 hr 06/17/18 06/17/18 06/17/18 05:07 05:07 05:07 WBC 7.0 RBC 2.58 L Hgb 9.0 L Hct 26.5 L MCV 102.5 H MCH 34.8 H MCHC 34.0 RDW 14.2 Plt Count 102 L MPV 7.6 Sodium 140 Potassium 3.0 L Chloride 97 L Carbon Dioxide 35.2 H Anion Gap 8 BUN 30 H Creatinine 1.69 H Estimated GFR 40 L POC Glucose Random Glucose 113 H Calcium 7.6 L Phosphorus 2.9 Magnesium 2.1 06/17/18 06/17/18 08:07 12:05 WBC RBC Hgb Hct MCV MCH MCHC RDW Plt Count MPV Sodium Potassium Chloride Carbon Dioxide Anion Gap BUN Creatinine Estimated GFR POC Glucose 104 141 H Random Glucose Calcium Phosphorus Magnesium Result Diagrams: 06/17/18 05:07 06/17/18 05:07 - Plan (1) S/P CABG x 3 Plan: on ASA, no statin ( intolerant ) , amiodarone hold BB for now was on NING at home OOB, PT eval for HHC at discharge transfer to [facility] (2) CAD (coronary artery disease) Plan: ASA, BB no statin with intolerance OOB/ ambulate fall risk (3) Diabetes mellitus Plan: pt is diet controlled, on insulin sliding scale HGB A1C 5.4 diabetic diet (4) Hyperlipidemia Plan: resume zetia (5) Hypertension Plan: no BP meds for now (6) Hx of ileostomy Plan: ileostomy care (3) Diabetes mellitus Qualifiers: Diabetes mellitus type: type 2
[2018-06-18 03:59] VITALS: TEMP 98
[2018-06-18] MEDS: Amiodarone 200 MG Tablet PO SCH ×2 (05:54→14:45)
[2018-06-18] MEDS: Docusate Sodium 100 MG Capsule PO SCH (08:27)
[2018-06-18] MEDS: Insulin NovoLOG Aspart Correctional Sugar Inj SQ SCH ×3 (08:27→12:22)
[2018-06-18] MEDS: Multivitamin/Minerals Therapeutic Tablet PO SCH (08:28)
[2018-06-18] MEDS: Polyethylene Glycol 3350 17 GM Packet PO SCH (08:28)
[2018-06-18] MEDS: Metoprolol Tartrate 25 MG Tablet PO SCH (08:28)
[2018-06-18] MEDS: Escitalopram 10 MG Tablet PO SCH (08:29)
[2018-06-18] MEDS: Ezetimibe 10 MG Tablet PO SCH (08:29)
[2018-06-18] MEDS: Pantoprazole Sodium 20 MG DR Tablet PO SCH (08:29)
[2018-06-18] MEDS: ALPRAZolam 0.5 MG Tablet PO SCH (08:29)
[2018-06-18] MEDS: Hydrocortisone 2.5% Cream 30 GM Tube TOPICAL SCH (08:30)
[2018-06-18 09:36] VITALS: RESP 18
--- NOTE | 2018-06-18 10:34 | P.DS ---
Date of admission: 06/13/18 06:18 Primary care physician: Mathew Sandoval DO Attending physician on discharge: Ellyn Suh Anticipated date of discharge: 06/18/18 Brief History from admission: 72-year-old male / initially seen 05/29/[address] Mathew Sandoval and Dr. Wang Joiner, who has had a history of some recurrent palpitations for a few seconds, happening mostly at night, waking him up from his sleep, this was going on for the last couple of months. 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 The patient underwent further workup, which included a cardiac catheterization that showed an EF of 60%, mid distal LAD 95%, the OM 100 %, the RCA 100%. We were consulted to evaluate for coronary artery bypass grafting. The patient's cardiac risk factors include age, obesity, sedentary lifestyle, noninsulin dependent diabetes mellitus, hypertension, hyperlipidemia. PAST MEDICAL HISTORY: Non-insulin dependent diabetes mellitus, diet controlled, history of colon cancer post-resection, ulcerative colitis diagnosed in 1977, esophageal stricture post-dilation, history of possible obstructive sleep apnea , he refuses to wear a CPAP machine, peripheral premature ventricular contractions. pt electively admitted today for surgery surgery: Patient update on day of discharge: pt doing well , on room air will hold further diuresis / last creatinine 1.69 HX of CKD remains in NSR, taper dose amiodarone stable for dc to rehab prn GI motility meds only with ileostomy DS: Diagnosis - Discharge Diagnosis (1) S/P CABG x 3 Status: Acute (2) CAD (coronary artery disease) Status: Acute (3) Diabetes mellitus Status: Acute (4) Hyperlipidemia Status: Acute (5) Hypertension Status: Acute (6) Hx of ileostomy Status: Acute DS: Summary Hospital Course: pt electively admitted today for surgery surgery: Date of procedure: 06/13/18 Procedure: CABG x 3 LOZA to LAD - poor SVG to OM1 - fair SVG to PDA - good EVH extubated after surgery crystalloid 2900cc, 1130 cc/ cell saver ? [id number] 06/14 pt somewhat lightheaded when assisted OOB to chair BP labile earlier / improved with NS bolus remains in NSR on ASA, no statin ( statin intolerance) on zetia no BB for now with labile BP will transfer to stepdown unit aggressive pulm toileting 06/15/18 Improved today, ambulating with assist c/o irritation from chest tubes 06/16/18 Chest tube output continues to be copious c/o incisional pain 06/17/18 chest tube dc without difficulty on room air eval for rehab at discharge no statin 2/2 intolerance 06/18 doing well , stable for dc to rehab - Time Spent with Patient Total time spent providing and/or coordinating discharge services: Greater than 30 minutes - Quality: AMI Clinical Trial Participant: No - Quality: VTE Deep Vein Thrombosis/Pulmonary Embolism Present on Admission: No Exam Vital signs: Vital Signs 06/17/18 11:00 06/17/18 12:00 06/17/18 13:00 Temperature 98.5 F Pulse Rate 74 80 81 Respiratory Rate 17 Blood Pressure 100/50 L Pulse Oximetry 94 L 06/17/18 15:00 06/17/18 15:31 06/17/18 16:00 Temperature 99.9 F H Pulse Rate 79 81 Respiratory Rate 18 18 Blood Pressure 107/51 L Pulse Oximetry 95 06/17/18 17:00 06/17/18 18:00 06/17/18 19:40 Temperature 98.2 F Pulse Rate 80 77 77 Respiratory Rate 16 Blood Pressure 92/50 L Pulse Oximetry 95 06/17/18 20:00 06/17/18 21:00 06/17/18 22:00 Temperature Pulse Rate 75 70 73 Respiratory Rate Blood Pressure Pulse Oximetry 06/17/18 23:00 06/18/18 00:00 06/18/18 01:00 Temperature 98.2 F Pulse Rate 75 79 78 Respiratory Rate 15 Blood Pressure 91/52 L Pulse Oximetry 94 L 06/18/18 02:00 06/18/18 03:00 06/18/18 04:00 Temperature 98.0 F Pulse Rate 79 76 77 Respiratory Rate 15 Blood Pressure 92/53 L Pulse Oximetry 96 06/18/18 05:00 06/18/18 06:00 06/18/18 07:00 Temperature 98.0 F Pulse Rate 78 77 79 Respiratory Rate 18 Blood Pressure 101/57 L Pulse Oximetry 96 06/18/18 08:00 06/18/18 09:00 06/18/18 09:51 Temperature Pulse Rate 76 78 Respiratory Rate Blood Pressure Pulse Oximetry 96 96 Intake & Output 06/17/18 06/18/18 06/18/18 18:59 06:59 18:59 Intake Total 960 / 960 700 / 700 Output Total 1350 / 1350 1775 / 1775 Balance -390 / -390 -1075 / -1075 Weight 109 kg Intake: Oral 960 / 960 700 / 700 Output: Urine 1350 / 1350 1775 / 1775 Other: Date of Last Bowel Movement 06/17/18 06/17/18 06/18/18 # Bowel Movements 2 2 - Constitutional no acute distress - Routine HEENT Exam Head: Present: normocephalic, atraumatic Eye: Present: EOMI, PERRL, normal accommodation - Routine Neck Exam Present: supple, full ROM - Routine Chest/Breast/Axilla Exam Chest wall: Present: tenderness - Routine Respiratory Exam Present: CTA bilaterally - Routine Cardiovascular Exam Present: RRR, S1, S2 - Routine Abdominal Exam Present: soft, normoactive bowel sounds Comments: ileostomy bag in place / liguid stool - Routine Skin Exam Present: intact, ecchymosis Comments: ecchymosis left inner thigh and groin prevena dressing to chest incision intact to left leg - Routine Neurological Exam Present: alert, oriented X3, CN II-XII intact Results Procedures completed during hospitalization: Date of procedure: 06/13/18 Procedure: CABG x 3 LOZA to LAD - poor SVG to OM1 - fair SVG to PDA - good EVH Labs on day of discharge: Labs from last 24 hours 06/18/18 06/17/18 06/17/18 07:36 19:49 16:45 POC Glucose 121 H 156 H 135 H 06/17/18 12:05 POC Glucose 141 H - Impressions ITS Impressions Chest X-Ray 06/14/18 05:00 CONCLUSION: 1. Stable mediastinal drain and left-sided chest tube without pneumothorax. 2. Stable mild left lower lung zone pleural-parenchymal opacities. Discharge Plan - Discharge Disposition Patient Disposition: 62 Rehab Inpatient - Discharge Condition Condition: Good - Discharge Order Discharge Orders: Discharge Order (Routine); Ordered 06/18/18 Ordered By: Selene Allen - Discharge Details Anticipated Discharge Date: 06/18/18 - Physicians Team Primary Care Provider: Mathew Sandoval Attending Provider: Ellyn Suh Other Providers: [facility] - Rxs /Orders / Referrals /Forms Prescriptions: New alprazolam [Xanax] 0.5 mg Tablet 0.5 mg PO BID PRN (Reason: anxiety) RF: 0 amiodarone 200 mg Tablet 400 mg PO Q12HR RF: 0 docusate sodium [DOK] 100 mg Capsule 100 mg PO DAILY PRN (Reason: Constipation) RF: 0 insulin aspart U-100 [Novolog U-100 Insulin aspart] 100 unit/mL Solution 0 unit Sub-Q BIDAC RF: 0 metoprolol tartrate 25 mg Tablet 12.5 mg PO BID RF: 0 jylmhapt-sgew-RN-calcium-mins [Thera M Plus (ferrous fumarat)] 9 mg iron-400 mcg Tablet 1 tab PO DAILY RF: 0 oxycodone-acetaminophen 5-325 mg Tablet 1 tab PO Q4H PRN (Reason: Pain Scale 1 To 5) Qty: 30 RF: 0 Continue aspirin [Aspirin Low Dose] 81 mg Tablet,Delayed Release (Dr/Ec) 81 mg PO DAILY baclofen 10 mg Tablet 10 mg PO TID PRN (Reason: Muscle Spasticity) escitalopram oxalate 10 mg Tablet 10 mg PO DAILY ezetimibe [Zetia] 10 mg Tablet 10 mg PO DAILY hydrocortisone 2.5 % Cream 1 applic TOPICAL BID omeprazole 20 mg Tablet,Delayed Release (Dr/Ec) 20 mg PO DAILY Discontinued alprazolam [Xanax] 1 mg Tablet 1 mg PO BID lisinopril 5 mg Tablet 5 mg PO DAILY metoprolol tartrate 25 mg Tablet 25 mg PO BID vit C,S-Uc-xjoag-lutein-zeaxan [PreserVision AREDS 2] 879-489-50-1 mg-unit-mg -mg Capsule 1 tab PO DAILY Ambulatory Orders / Order Sets / DME: XR chest 2V PA&LAT (Routine) Timeframe: 2 Days Location: Determined by Patient Ordered By: Selene Allen Basic Metabolic Panel (Routine) Timeframe: 2 Weeks Location: Determined by Patient Ordered By: Selene Allen Complete Blood Count NO Diff (Routine) Timeframe: 2 Weeks Location: Determined by Patient Ordered By: Selene Allen Referrals: Wang Joiner MD [Physician] - See Instructions ( Your appointment has been scheduled for [07/25/18] at [5:30 pm] If you cannot make this appointment, please call the office to reschedule ) Ellyn Suh MD [Physician] - See Instructions ( Your appointment has been scheduled for [07/04/18] at [10:30 am] If you cannot make this appointment, please call the office to reschedule ) Mathew Sandoval DO [Primary Care Provider] - See Instructions ( Your appointment has been scheduled for [07/03/18] at [10:30 am] If you cannot make this appointment, please call the office to reschedule ) - Discharge Instructions Patient Printed Instructions: Metoprolol (By mouth), Oxycodone/Acetaminophen ( By mouth), Amiodarone (By mouth), Laxative, Stool Softeners (By mouth), Myocardial Infarction (DC), Non-diabetic Hypoglycemia (DC), Acute Wound Care (DC ), Chronic Hypertension (DC), Hyperlipidemia (DC), Sternal Precautions (GEN), Coronary Artery Bypass Graft (DC) Additional Instructions: PREVENA Single Use Negative Wound Therapy System Caregiver Instruction Sheet 1. A Prevena dressing system was applied to the chest incision during surgery , to promote wound healing. It works via a suction device (negative pressure wound therapy) to remove low to moderate levels of exudate (drainage) and infectious materials. We recommend that the device stay in place for up to seven days, from day of surgery. 2. Day of Surgery___06/13/18 Day of Removal ____06/20/18 3. The dressing should only be removed by a health care nurse rn. Please arrange removal of device to coincide with Home Health visit and or with Nursing staff at Rehab 4. If skin reddening or irritation of skin occurs, or excessive drainage, please notify the Cardiovascular Surgeons office at [phone]. 5. Light showering is permissible; however the pump should be disconnected and placed in safe location, where it will not get wet. The dressing should not be exposed to direct spray or submerged in water. No bath tub / shower only. Ensure the end of the tubing attached to the dressing is facing down so that water does not enter the top of the tube. 6. To remove Prevena dressing: press purple button to turn off device / remove the suction. Then disconnect the tubing from the pump. The fixation strips should be stretched away from the skin and the dressing lifted at one corner and peeled back until it has been fully removed. 7. After removal, it is ok to shower daily using liquid dial soap and clean wash cloth, rinse and pat dry, and leave incision open to air dry. For any concerns regarding Prevena dressing, and or wounds, please contact Alisia Henry, patient navigator at [phone] or notify the Cardiovascular Surgeons office at [phone]. Incentive spirometry Q1 hr x 10, while awake, also use acapella device hourly whole awake Sternal Breast Bone Precautions: NO pushing or pulling, ( pt must use sternal pillow to support chest with all activities and with coughing ( takes up to 3 months breast bone to heal ) Daily incision care: ok to shower daily, no tub bath. Wash all incisions with liquid dial soap, clean wash cloth to each site, rinse and pat dry. Observe for any signs of infection, such as drainage which is dark yellow, baez, green or foul smelling. Immediately report to the surgeon any drainage from the chest incision, or legs, and for any abnormal drainage from the chest tube sites. Notify surgeon if any temp >101.5 degrees F. When specialty dressing removed/ or if you do not have one, continue to shower daily as above, then rinse and pat incision dry and paint with betadine daily x 5 days. Allow steri strips to fall off if you have any. Avoid lotions, creams, salves, oils, etc. for the first month Please see attached forms for additional instructions regarding post Open Heart specialty wound vacuum dressings. [place] or Prevena , Dressing to be removed by Nursing staff on __06/20/[address] Suh patients , please obtain CBC, BMP, PA & Lat CXR in 2 weeks, results to Dr. Suh ( prescription will be given) ( ) (Tele: [phone]) , F/U appointment: as per DC instructions: PCP in 2 weeks, CV surgeon 2 weeks, Culinary Artist 3-4 weeks For any questions regarding incisions/ dressing / meds / post op care or above Symptoms, Adriel Joshua 8am-5pm Heart & Vascular Surgery Office ( Dr. Hwang & Dr. Suh), After Hours / Nights (5pm -8am) Weekends and Holidays Please call [facility] Card[facility] ([facility]) Charge Nurse
[2018-06-18 12:48] VITALS: BP 113/58; O2SAT 98
[2018-06-18 13:27] VITALS: PULSE 73
--- NOTE | 2018-06-18 17:54 | ECG ---
Date Performed: 06/17/2018 Time Performed: 11:08:56 PTAGE: 72 years EKG: Sinus rhythm Possible inferior infarct - age undetermined Ant/septal and lateral ST-T changes are nonspecific Low QRS voltages in precordial leads Since the previous tracing, no significant change noted Abnormal EC G NO PREVIOUS TRACING DOCTOR: Donna Kate Interpretating Date/Time 06/18/2018 17:50:25
== END 2018-06-18 15:30 ==
LOC: HSDI 06-13 06:18 → HCVI 06-13 12:44 → HCPC 06-14 11:21
PROVIDERS: ADMIT Thoracic Surgery (Cardiothoracic Vascular Surgery); ATTEND Thoracic Surgery (Cardiothoracic Vascular Surgery)

== ENCOUNTER 2018-10-02 10:58 | Inpatient (IN) ==
--- NOTE | 2018-10-02 11:46 | ED ---
HPI General Chief complaint: Weakness Stated complaint: gen weakness Time Seen by Provider: 10/02/18 11:28 Source: patient Mode of arrival: ambulatory Limitations: no limitations History of Present Illness HPI Narrative: The patient is a 72-year-old male who presents to the emergency department via private vehicle for generalized weakness. The patient has a history of CABG that was performed in June [address] Sparks. The patient then went to inpatient rehab, however, became septic and had a prolonged hospitalization course. The patient eventually was discharged home in July and has been doing well until the last several days. The patient's family member states that the patient has had increasing generalized weakness, difficulty getting out of bed and ambulating to the bathroom, and has had several falls in the last 3 days. The patient also has had a decreased appetite and is complained of intermittent left-sided pain, initially thought to be secondary to a kidney stone. The patient states the left-sided flank pain has resolved, however, he does have generalized weakness with anorexia and inability to ambulate. Symptoms are moderate and progressive. The patient denies any fever, chills, or sweats. The patient denies any new cough, chest pain, shortness of breath, or dysuria. 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 The patient's primary physician is Dr. Mathew Sandoval. Complaint: Reports generalized weakness Onset (ago): day(s) Duration: progressively worsening Location: Reports generalized Migration: Reports none Severity: moderate Severity scale (1-10): 8 Relieving factors: none Exacerbating factors: exertion Associated symptoms: Reports confusion and loss of appetite Related Data Home Medications Medication Instructions Recorded Confirmed alprazolam 1 mg PO TID 10/02/18 10/02/18 aspirin 81 mg PO DAILY 10/02/18 10/02/18 baclofen 10 mg PO PRN PRN 10/02/18 10/02/18 escitalopram oxalate 10 mg PO DAILY 10/02/18 10/02/18 ezetimibe 10 mg PO DAILY 10/02/18 10/02/18 ferrous fumarate 10/02/18 hydrocortisone 1 applic TOPICAL PRN 10/02/18 10/02/18 hydroxyzine HCl 25 mg PO PRN PRN 10/02/18 10/02/18 metoprolol tartrate 25 mg PO DAILY 10/02/18 10/02/18 omeprazole 20 mg PO DAILY 10/02/18 10/02/18 ondansetron HCl [Zofran] 4 mg PO PRN PRN 10/02/18 10/02/18 tramadol 10/02/18 Allergies Allergy/AdvReac Type Severity Reaction Status Date / Time amlodipine Allergy Severe Rash Verified 06/13/18 07:00 atorvastatin Allergy Severe Rash Verified 06/13/18 07:00 pravastatin Allergy Severe Rash Verified 06/13/18 07:00 simvastatin Allergy Severe Rash Verified 06/13/18 07:00 morphine AdvReac Nausea/Vomi Verified 06/13/18 07:00 ting Review of Systems ROS: all other systems reviewed are negative [facility] Family History Family History Other No pertinent family history Social History Social History Substance History: No History of Abuse Second Hand Smoke Exposure: No Smoking Status: Former smoker Tobacco Type: Cigarettes How Often Do You Have a Drink Containing Alcohol: 2 to 4 times a month Recent Travel in [facility] within the Last 8 Weeks: No Recent Out of Country Travel within the Last 8 Weeks: No Immunization History Tetanus Immunization: Unsure Exam Narrative Exam Narrative: GENERAL: Awake, alert, pleasant 72-year-old male who appears his stated age and is in no acute respiratory distress. SKIN: Focused skin assessment warm/dry. Pale complexion. HEAD: Atraumatic. Normocephalic. EYES: Pupils equal and round. No scleral icterus. No injection or drainage. ENT: No nasal bleeding or discharge. Slightly dry mucous membranes. NECK: Trachea midline. No JVD. CARDIOVASCULAR: Regular rate and rhythm. No murmur appreciated. Heart rate in the 90s per RESPIRATORY: No accessory muscle use. Few scattered rhonchi in the right base. GASTROINTESTINAL: Abdomen soft, slightly obese, ileostomy in place. No guarding or rigidity. MUSCULOSKELETAL: No obvious deformities. No clubbing. No cyanosis. Mild edema to left lower extremity. NEUROLOGICAL: Awake and alert. No obvious cranial nerve deficits. Motor grossly within normal limits. Normal speech. Patient is oriented to person, place, month, and year. Back: No CVA tenderness. PSYCHIATRIC: Appropriate mood and affect; insight and judgment normal. Course Initial Documented Vital Signs Temperature 99 F 10/02/18 11:04 Pulse Rate 95 H 10/02/18 11:04 Respiratory Rate 16 01/02/19 11:04 Pulse Oximetry 89 L 10/02/18 11:04 Last Documented Vital Signs Temperature 99 F 10/02/18 11:04 Pulse Rate 102 H 10/02/18 12:38 Respiratory Rate 14 10/02/18 12:38 Blood Pressure 124/57 L 10/02/18 12:38 Pulse Oximetry 95 10/02/18 12:38 Medical Decision Making MDM Narrative Medical decision making narrative: IV was established, labs are drawn and sent, and the patient was placed on cardiac telemetry monitoring and continuous pulse oximetry monitoring. EKG was ordered and interpreted. Chest x-ray was obtained. UA was sent to lab. Blood cultures and lactic acid were sent to lab. The patient CT of the brain is negative for subdural hemorrhage. Chest x- ray reveals mild cardiomegaly, no obvious infiltrate. Lactic acid was normal. The patient's white count is elevated at 15.8, creatinine is elevated at 3.68, last creatinine was 2. The patient appears to have acute dehydration, acute on chronic renal failure, and UTI with leukocytosis. The patient is also had intermittent confusion, most likely secondary to UTI and dehydration with delirium. The patient had a chest x-ray reveals mild cardiomegaly and possible early pulmonary edema, therefore, cannot be bolused large amounts at one time, he was administered normal saline 500 cc and Rocephin 1 g intravenously. The on -call medical service was paged for admission. I discussed the patient with Dr. Feliz who agrees with admission. Medical Screen Exam Complete: Yes Emergency Medical Condition: Yes Differential Diagnosis Differential Diagnosis: Differential diagnosis includes subdural hemorrhage, hyponatremia, UTI, acute renal failure, dehydration, pneumonia, sepsis, deconditioning. Lab Data Lab results reviewed: Yes I reviewed the patient's lab results. Result diagrams: 10/02/18 11:33 10/02/18 11:33 Lab Results 10/02/18 10/02/18 10/02/18 Range/Units 11:30 11:33 11:33 WBC 15.8 H (4.0-11.0) th/mm3 RBC 4.35 L (4.50-5.90) mil/mm3 Hgb 14.0 (13.0-17.0) gm/dL Hct 41.1 (39.0-51.0) % MCV 94.4 (80.0-100.0) fL MCH 32.3 (27.0-34.0) pg MCHC 34.2 (32.0-36.0) % RDW 16.4 (11.6-17.2) % Plt Count 147 L (150-450) th/mm3 MPV 7.6 (7.0-11.0) fL Neut % (Auto) 84.9 H (16.0-70.0) % Lymph % (Auto) 4.6 L (9.0-44.0) % [place] % (Auto) 10.2 H (0.0-8.0) % Eos % (Auto) 0.1 (0.0-4.0) % Baso % (Auto) 0.2 (0.0-2.0) % Neut # (Auto) 13.4 H (1.8-7.7) th/mm3 Lymph # (Auto) 0.7 L (1.0-4.8) th/mm3 [place] # (Auto) 1.6 H (0.0-0.9) th/mm3 Eos # (Auto) 0.0 (0.0-0.4) th/mm3 Baso # (Auto) 0.0 (0.0-0.2) th/mm3 WBC Differential . Differential Comment Auto diff final Sodium 132 L (136-145) meq/L Potassium 4.3 (3.5-5.1) meq/L Chloride 98 (98-107) meq/L Carbon Dioxide 24.7 (21.0-32.0) meq/L Anion Gap 9 (5-15) meq/L BUN 38 H (7-18) mg/dL Creatinine 3.68 H (0.60-1.30) mg/dL Estimated GFR 16 L (>89) mL/min Random Glucose 146 H (74-106) mg/dL Lactic Acid 1.0 (0.4-2.0) mmol/L Calcium 8.8 (8.5-10.1) mg/dL Magnesium 2.0 (1.5-2.5) mg/dL Total Bilirubin 0.9 (0.2-1.0) mg/dL AST 57 H (15-37) U/L ALT 27 (12-78) U/L Alkaline Phosphatase 79 (45-117) U/L Total Creatine Kinase 789 H (39-308) U/L CK-MB (CK-2) Less than 1.0 (0.5-3.6) ng/mL CK-MB (CK-2) % 0.1 (0.0-4.0) % Troponin I 0.06 H (0.02-0.05) ng/mL B-Natriuretic Peptide (0-100) pg/mL Total Protein 7.9 (6.4-8.2) g/dL Albumin 2.8 L (3.4-5.0) g/dL Lipase 55 L (73-393) U/L TSH 1.030 (0.358-3.740) uIU/mL Urine Color (Yellw/Straw) Urine Clarity (Clear) Urine pH (5.0-8.5) Ur Specific [place] (1.002-1.035) Urine Protein (Neg-Trace) mg/dL Urine Glucose (UA) (Negative) mg/dL Urine Ketones (Negative) mg/dL Urine Occult Blood (Negative) Urine Nitrate (Negative) Urine Bilirubin (Negative) Urine Urobilinogen (Less than 2) mg/dL Ur Leukocyte Esterase (Negative) Urine RBC (0-3) /hpf Urine WBC (0-5) /hpf Urine WBC Clumps (None) Urine Bacteria (None) /hpf Micro UA Comment Ur Microscopic Review Urine Culture Comments 10/02/18 10/02/18 10/02/18 Range/Units 11:33 11:33 12:20 WBC (4.0-11.0) th/mm3 RBC (4.50-5.90) mil/mm3 Hgb (13.0-17.0) gm/dL Hct (39.0-51.0) % MCV (80.0-100.0) fL MCH (27.0-34.0) pg MCHC (32.0-36.0) % RDW (11.6-17.2) % Plt Count (150-450) th/mm3 MPV (7.0-11.0) fL Neut % (Auto) (16.0-70.0) % Lymph % (Auto) (9.0-44.0) % [place] % (Auto) (0.0-8.0) % Eos % (Auto) (0.0-4.0) % Baso % (Auto) (0.0-2.0) % Neut # (Auto) (1.8-7.7) th/mm3 Lymph # (Auto) (1.0-4.8) th/mm3 [place] # (Auto) (0.0-0.9) th/mm3 Eos # (Auto) (0.0-0.4) th/mm3 Baso # (Auto) (0.0-0.2) th/mm3 WBC Differential Differential Comment Sodium (136-145) meq/L Potassium (3.5-5.1) meq/L Chloride (98-107) meq/L Carbon Dioxide (21.0-32.0) meq/L Anion Gap (5-15) meq/L BUN (7-18) mg/dL Creatinine (0.60-1.30) mg/dL Estimated GFR (>89) mL/min Random Glucose (74-106) mg/dL Lactic Acid (0.4-2.0) mmol/L Calcium (8.5-10.1) mg/dL Magnesium (1.5-2.5) mg/dL Total Bilirubin (0.2-1.0) mg/dL AST (15-37) U/L ALT (12-78) U/L Alkaline Phosphatase (45-117) U/L Total Creatine Kinase (39-308) U/L CK-MB (CK-2) (0.5-3.6) ng/mL CK-MB (CK-2) % (0.0-4.0) % Troponin I (0.02-0.05) ng/mL B-Natriuretic Peptide 219 H (0-100) pg/mL Total Protein (6.4-8.2) g/dL Albumin (3.4-5.0) g/dL Lipase Cancelled (73-393) U/L TSH (0.358-3.740) uIU/mL Urine Color Beth (Yellw/Straw) Urine Clarity Turbid H (Clear) Urine pH 5.0 (5.0-8.5) Ur Specific [place] 1.014 (1.002-1.035) Urine Protein 100 H (Neg-Trace) mg/dL Urine Glucose (UA) Negative (Negative) mg/dL Urine Ketones Trace H (Negative) mg/dL Urine Occult Blood Moderate H (Negative) Urine Nitrate Negative (Negative) Urine Bilirubin Negative (Negative) Urine Urobilinogen Less than 2 (Less than 2) mg/dL Ur Leukocyte Esterase Large H (Negative) Urine RBC 11 H (0-3) /hpf Urine WBC (0-5) /hpf Urine WBC Clumps Many H (None) Urine Bacteria Many H (None) /hpf Micro UA Comment Culture indicated Ur Microscopic Review Not Reportable Urine Culture Comments Culture indicated Imaging Data Radiologist's impression: Chest X-Ray 10/02/18 11:29 CONCLUSION: Mild congestive failure without significant effusion or consolidation. Head CT 10/02/18 11:29 CONCLUSION: Slight chronic small vessel ischemic and atrophic changes. ECG Data EKG Prior to Arrival: No Attestation: I personally reviewed and interpreted this ECG as follows: Interpretation: EKG reveals normal sinus rhythm with a rate of 96. Q waves noted in lead III and aVF. No ectopy noted. Discharge Plan Discharge Disposition Patient Disposition: ED Admit(ED Internal Use Only) Discharge Condition Condition: Stable Discharge Order Discharge Orders: ED Use Only Admit Order (Routine); Ordered 10/02/18 Ordered By: Reji Sandoval Discharge Details Diagnosis: Acute UTI, Acute renal failure, Acute dehydration, Leukocytosis, Delirium Physicians Team ED Provider: Reji Sandoval Primary Care Provider: Mathew Sandoval Rxs /Orders / Referrals /Forms Prescriptions: No Action alprazolam 1 mg Tablet 1 mg PO TID RF: 0 aspirin 81 mg Tablet,Delayed Release (Dr/Ec) 81 mg PO DAILY RF: 0 ondansetron HCl [Zofran] 4 mg Tablet 4 mg PO PRN PRN (Reason: Nausea) RF: 0 baclofen 10 mg Tablet 10 mg PO PRN PRN (Reason: Pain) RF: 0 hydrocortisone 2.5 % Cream 1 applic TOPICAL PRN RF: 0 hydroxyzine HCl 25 mg Tablet 25 mg PO PRN PRN (Reason: Itching) RF: 0 escitalopram oxalate 10 mg Tablet 10 mg PO DAILY RF: 0 ezetimibe 10 mg Tablet 10 mg PO DAILY RF: 0 metoprolol tartrate 25 mg Tablet 25 mg PO DAILY RF: 0 omeprazole 20 mg Tablet,Delayed Release (Dr/Ec) 20 mg PO DAILY RF: 0 ferrous fumarate RF: 0 tramadol RF: 0 Status ED Status: Admitted Patient
--- NOTE | 2018-10-02 12:03 | XR ---
EXAM DATE: 10/02/2018 11:52 AM EST AGE/SEX: 72 years / Male INDICATIONS: Shortness of breath, chest pain and general weakness. CLINICAL DATA: This is the patient's initial encounter. Patient reports that signs and symptoms have been present for 1 day and indicates a pain score of 5/10. MEDICAL/SURGICAL HISTORY: . Myocardial infarction. CABG. COMPARISON: [facility], CHEST 1V SINGLE AP, 06/29/2018. . FINDINGS: Sternal wires previous bypass are noted. The heart is enlarged. Mild interstitial edema is present. T here is no alveolar consolidation, pleural effusion or pneumothorax. The portion of the bony skeleton visualized is unremarkable. CONCLUSION: Mild congestive failure without significant effusion or consolidation. Electronically signed by: Ventura Lucio MD Board Certified Radiologist 10/02/2018 12:02 PM EST
[2018-10-02 12:06] LABS: Baso % (Auto) 0.2 % (0.0-2.0); Eos % (Auto) 0.1 % (0.0-4.0); Hematocrit 41.1 % (39.0-51.0); Lymph # (Auto) 0.7 th/mm3 (1.0-4.8); Lymph % (Auto) 4.6 % (9.0-44.0); Mean Corpuscular HGB Conc 34.2 % (32.0-36.0); Mean Corpuscular Hemoglobin 32.3 pg (27.0-34.0); Mean Corpuscular Volume 94.4 fL (80.0-100.0); Mean Platelet Volume 7.6 fL (7.0-11.0); Mono # (Auto) 1.6 th/mm3 (0.0-0.9); Mono % (Auto) 10.2 % (0.0-8.0); Neut # (Auto) 13.4 th/mm3 (1.8-7.7); Neut % (Auto) 84.9 % (16.0-70.0); Platelet Count 147 th/mm3 (150-450); Red Blood Count 4.35 mil/mm3 (4.50-5.90); Red Cell Distribution Width 16.4 % (11.6-17.2); White Blood Count 15.8 th/mm3 (4.0-11.0)
--- NOTE | 2018-10-02 12:09 | CT ---
EXAM DATE: 10/02/2018 12:06 PM EST AGE/SEX: 72 years / Male INDICATIONS: Altered mental status, complains of weakness. CLINICAL DATA: This is the patient's initial encounter. Patient reports that signs and symptoms have been present for 1 day and indicates a pain score of 5/10. MEDICAL/SURGICAL HISTORY: Carcinoma, colon. None. RADIATION DOSE: 40.67 CTDI (mGy) COMPARISON: No prior exams available for comparison. TECHNIQUE: CT of the head without contrast. Using automated exposure control and adjustment of the mA and/or kV according to patient size, radiation dose was kept as low as reasonably achievable to ob tain optimal diagnostic quality images. DICOM format image data is available electronically for revi ew and comparison. FINDINGS: There is no evidence for intracranial hemorrhage, mass effect, mass lesions, or edema. The visualize d bony structures appear intact. Slight degree of brain atrophy is seen. Slight periventricular whit e matter changes are seen nonspecific mostly consistent with chronic small vessel ischemic changes. There are no signs of acute infarction for technique. CONCLUSION: Slight chronic small vessel ischemic and atrophic changes. Electronically signed by: Donna Pathak MD Board Certified Radiologist 10/02/2018 12:08 PM EST
--- NOTE | 2018-10-02 12:10 | ECG ---
Date Performed: 10/02/2018 Time Performed: 11:31:54 PTAGE: 72 years EKG: Sinus rhythm PATTERN CONSISTENT WITH PULMONARY DISEASE INFERIOR MYOCARDIAL INFARCTION ABNORMAL ECG PREVIOUS TRACING : 06/17/2018 11.08 DOCTOR: Wyatt Giang Interpretating Date/Time 10/02/2018 12:08:16
[2018-10-02 12:36] LABS: Alanine Aminotransferase 27 U/L (12-78)
[2018-10-02 12:54] LABS: Bacteria,Urine Many /hpf; Bilirubin,Urine Negative (Negative); Clarity,Urine Turbid (Clear); Color,Urine Amber (Yellw/Straw); Glucose,Urine (UA) Negative (Negative); Leukocyte Esterase,Urine Large (Negative); Nitrite,Urine Negative (Negative); Specific Gravity,Urine 1.014 (1.002-1.035)
[2018-10-02 12:56] LABS: Anion Gap 9 meq/L (5-15)
[2018-10-02 12:57] LABS: Albumin 2.8 g/dL (3.4-5.0); Alkaline Phosphatase 79 U/L (45-117); Aspartate Aminotransferase 57 U/L (15-37); Blood Urea Nitrogen 38 mg/dL (7-18); Calcium 8.8 mg/dL (8.5-10.1); Carbon Dioxide 24.7 meq/L (21.0-32.0); Chloride 98 meq/L (98-107); Creatine Kinase 789 U/L (39-308); Glomerular Filtration Rate 16 mL/min (>89); Glucose,Random 146 mg/dL (74-106); Lipase 55 U/L (73-393); Potassium 4.3 meq/L (3.5-5.1); Sodium 132 meq/L (136-145); Total Protein 7.9 g/dL (6.4-8.2); Troponin I 0.06 ng/mL (0.02-0.05)
[2018-10-02 13:10] LABS: CKMB Percent 0.1 % (0.0-4.0)
[2018-10-02] MEDS ORDERED: Bisacodyl 10 MG Supp RECTAL PRN (14:00)
[2018-10-02] MEDS ORDERED: Sodium Chlor 0.9% Inj 500 ML IV.SIG SCH (14:00)
--- NOTE | 2018-10-02 16:35 | P.HPIM ---
History of Present Illness Service: Hospitalist Primary Care Physician: Mathew Sandoval DO Chief Complaint: Delirium, Urinary tract infection. History of Present Illness: Mr. Carlos is 72 year old male with a recent CABG (2017), recent UTI with sepsis who presents to the ED on 10/02/2018 due to worsening weakness, delirium that started about 3 days prior to this admission. Over the last 2 days, patient has been falling frequently and feeling very weak. He was also noted to have significant changes in his mental status. He had low-grade fever at home. He also complained of left-sided flank pain for a day but that resolved. At the time of this interview, patient is resting in bed. He is able to follow simple commands. No changes in bowel habits. Patient does not have any chest pain, shortness of breath. Past medical history: Coronary artery disease, hyperlipidemia, hypertension, previous sepsis due to UTI Past surgical history: CABG x3. Social history: Patient does not smoke. Drinks alcohol socially. Family history: Both parents with heart disease. Inpatient Certification Inpatient Certification: I certify that the inpatient services were ordered in accordance with Medicare regulations governing the order. This includes certification that hospital inpatient services are reasonable and necessary and in the case of services not specified as inpatient-only under 42 CFR 419.22(n), that they are appropriately provided as inpatient services in accordance to with the 2-midnight benchmark under 43 CFR 412.3(e) Estimated Total Length of Stay (Days): 3 Plans for Post Hospital Care: Not yet determined Review of Systems Review of Systems: all other systems reviewed are negative [facility], [facility] Family History Family History Other No pertinent family history Social History Social History Substance History: No History of Abuse Second Hand Smoke Exposure: No Smoking Status: Former smoker Tobacco Type: Cigarettes How Often Do You Have a Drink Containing Alcohol: 2 to 4 times a month Recent Travel in [facility] within the Last 8 Weeks: No Recent Out of Country Travel within the Last 8 Weeks: No Immunization History Tetanus Immunization: Unsure Medications and Allergies Allergies Allergy/AdvReac Type Severity Reaction Status Date / Time amlodipine Allergy Severe Rash Verified 06/13/18 07:00 atorvastatin Allergy Severe Rash Verified 06/13/18 07:00 pravastatin Allergy Severe Rash Verified 06/13/18 07:00 simvastatin Allergy Severe Rash Verified 06/13/18 07:00 morphine AdvReac Nausea/Vomi Verified 06/13/18 07:00 ting Home Medications Medication Instructions Recorded Confirmed Type alprazolam 1 mg PO TID 10/02/18 10/02/18 History aspirin 81 mg PO DAILY 10/02/18 10/02/18 History baclofen 10 mg PO PRN PRN 10/02/18 10/02/18 History escitalopram oxalate 10 mg PO DAILY 10/02/18 10/02/18 History ezetimibe 10 mg PO DAILY 10/02/18 10/02/18 History ferrous fumarate 10/02/18 History hydrocortisone 1 applic TOPICAL PRN 10/02/18 10/02/18 History hydroxyzine HCl 25 mg PO PRN PRN 10/02/18 10/02/18 History metoprolol tartrate 25 mg PO DAILY 10/02/18 10/02/18 History omeprazole 20 mg PO DAILY 10/02/18 10/02/18 History ondansetron HCl [Zofran] 4 mg PO PRN PRN 10/02/18 10/02/18 History tramadol 10/02/18 History Active Medications: Active Medications Acetaminophen (Tylenol) 650 mg PO Q4H PRN PRN Reason: Headache, fever, pain 1-4 Al Hydroxide/Mg Hydroxide (Milk Of Magnesia Liq) 30 ml PO Q12H PRN PRN Reason: Mild Constipation Bisacodyl (Dulcolax Supp) 10 mg RECTAL DAILY PRN PRN Reason: SEVERE CONSITIPATION Heparin Sodium (Porcine) (Heparin Inj) 5,000 units SQ Q12H JUDY Ceftriaxone Sodium 1,000 mg/ (Sodium Chloride) 100 mls @ 200 mls/hr IV.SIG Q24H JUDY Lactulose (Lactulose Liq) 30 ml PO DAILY PRN PRN Reason: SEVERE CONSITIPATION Ondansetron HCl (Zofran Inj) 4 mg IV.PUSH Q6H PRN PRN Reason: NAUSEA OR VOMITING Sennosides (Senokot) 17.2 mg PO Q12H PRN PRN Reason: Moderate Constipation Sodium Chloride (Ns Flush) 2 ml IV.FLUSH PRN PRN PRN Reason: FLUSH AFTER USING IV ACCESS Sodium Chloride (Ns Flush) 2 ml IV.FLUSH BID JUDY Sodium Chloride (Ns Flush) 2 ml IV.FLUSH PRN PRN PRN Reason: FLUSH AFTER USING IV ACCESS Physical Exam Vital signs: Last Vital Signs Temp 99 F 10/02/18 11:04 Pulse 93 H 10/02/18 14:36 Resp 18 10/02/18 14:36 BP 138/63 10/02/18 14:36 Pulse Ox 97 10/02/18 14:36 Intake & Output 09/30/18 10/01/18 10/02/18 10/03/18 06:59 06:59 06:59 06:59 Intake Total 600 / 600 Output Total 140 / 140 Balance 460 / 460 Weight 97.522 kg Narrative: GENERAL: Drowsy, responds to verbal commands. No acute distress. SKIN: No rashes, ecchymoses or lesions. Warm and dry. HEAD: Atraumatic. Normocephalic. No temporal or scalp tenderness. EYES: Pupils equal round and reactive. No injection or drainage. ENT: Nose without bleeding, purulent drainage or septal hematoma. Airway patent. NECK: Trachea midline. No lymphadenopathy. Supple, nontender, no meningeal signs. CARDIOVASCULAR: Regular rate and rhythm without murmurs, gallops, or rubs. No JVD. RESPIRATORY: Clear to auscultation. Breath sounds equal bilaterally. No wheezes , rales, or rhonchi. GASTROINTESTINAL: Abdomen soft, non-tender, nondistended. No guarding. No Flank pain. MUSCULOSKELETAL: Extremities without clubbing, cyanosis, or edema. NEUROLOGICAL: Awake and alert. Cranial nerves II through XII intact. No focal neurological deficits. Normal speech. Results Labs CBC & Chem 7: 10/02/18 11:33 10/02/18 11:33 Imaging Impressions Chest X-Ray 10/02/18 11:29 CONCLUSION: Mild congestive failure without significant effusion or consolidation. Head CT 10/02/18 11:29 CONCLUSION: Slight chronic small vessel ischemic and atrophic changes. Caprini VTE Risk Assessment Caprini VTE Risk Assessment: Moderate/High Risk (score >= 2) Caprini Risk Assessment Model: Point Value = 1 Point Value = 2 Point Value = 3 Point Value = 5 Age 41-60 Minor surgery BMI > 25 kg/m2 Swollen legs Varicose veins or History of unexplained or recurrent spontaneous Oral contraceptives or hormone replacement Sepsis (< 1 month) Serious lung disease, including pneumonia (< 1 month) Abnormal pulmonary function Acute myocardial infarction Congestive heart failure (< 1 month) History of inflammatory bowel disease Medical patient at bed rest Age 61-74 Arthroscopic surgery Major open surgery (> 45 min) Laparoscopic surgery (> 45 min) Malignancy Confined to bed (> 72 hours) Immobilizing plaster cast Central venous access Age >= 75 History of VTE Family history of VTE Factor V Leiden Prothrombin [id number] Lupus anticoagulant Anticardiolipin antibodies Elevated serum homocysteine Heparin-induced thrombocytopenia Other congenital or acquired thrombophilia Stroke (< 1 month) Elective arthroplasty Hip, pelvis, or leg fracture Acute spinal cord injury (< 1 month) Prophylaxis Regimen: Total Risk Factor Score Risk Level Prophylaxis Regimen 0-1 Low Early ambulation 2 Moderate Order ONE of the following: *Sequential Compression Device (SCD) *Heparin 5000 units SQ BID 3-4 Higher Order ONE of the following medications: *Heparin 5000 units SQ TID *Enoxaparin/Lovenox 40 mg SQ daily (WT < 150 kg, CrCl > 30 mL/min) *Enoxaparin/Lovenox 30 mg SQ daily (WT < 150 kg, CrCl > 10-29 mL/min) *Enoxaparin/Lovenox 30 mg SQ BID (WT < 150 kg, CrCl > 30 mL/min) AND/OR *Sequential Compression Device (SCD) 5 or more Highest Order ONE of the following medications: *Heparin 5000 units SQ TID (Preferred with Epidurals) *Enoxaparin/Lovenox 40 mg SQ daily (WT < 150 kg, CrCl > 30 mL/min) *Enoxaparin/Lovenox 30 mg SQ daily (WT < 150 kg, CrCl > 10-29 mL/min) *Enoxaparin/Lovenox 30 mg SQ BID (WT < 150 kg, CrCl > 30 mL/min) AND *Sequential Compression Device (SCD) Assessment and Plan Plan Mr. Carlos is a pleasant 72-year-old male with a history of coronary artery disease status post CABG, recent UTI with sepsis who presents to the emergency department on 10/02/2018 due to worsening weakness as well as recurrent falls in the last 3 days prior to this admission. Patient had subjective fever and briefly complained of left flank pain. Sepsis (pulse 93, WBC 15.8 K, UTI) Urinary tract infection We will empirically start patient on ceftriaxone 1 g every 24 hours. Follow urine culture and sensitivity. Acute on chronic kidney disease Chronic kidney disease stage III Creatinine elevated to 3.68. Baseline appears to be around 2. We will continue gentle hydration. Repeat CBC, BMP in the morning. If needed, consider nephrology consultation. We will obtain kidney ultrasound. Coronary artery disease Status post CABG in June 2018. Continue aspirin. Patient cannot tolerate statin. Hyperglycemia Patient does not take any diabetic medications. Nutrition We will keep patient on clear liquid diet today. Will obtain speech therapy evaluation. Full code. Heparin subcutaneous for DVT prophylaxis.
[2018-10-02] MEDS: Heparin - SQ 10,000 UNITS/ML Vial SQ SCH (17:05)
[2018-10-02] MEDS: Sod Chloride 0.9% Inj 1,000 ML IV.CONT SCH (18:40)
--- NOTE | 2018-10-02 19:42 | US ---
EXAM DATE: 10/02/2018 7:35 PM EST AGE/SEX: 72 years / Male INDICATIONS: Increased BUN/Creatinine. History of right renal calculi. CLINICAL DATA: This is the patient's subsequent encounter. Patient reports that signs and symptoms h ave been present for 4 - 6 days and indicates a pain score of 0/10. MEDICAL/SURGICAL HISTORY: . Cataracts. Colon cancer. Kidney stones. Diabetes. . Appendectomy. Cholecystectomy. Tonsillectomy. Cataract removal. COMPARISON: [facility], US KIDNEY/RENAL/BLADDER, 06/27/2018. . MEASUREMENTS: Right Kidney:__8.2 x 5.8 x 6.2 cm Left Kidney:__10.7 x 6.4 x 6.1 cm FINDINGS: Right Kidney: The right kidney appears mildly small in size with mild cortical thinning and normal ec hogenicity. There is no focal lesion or hydronephrosis. There is a small amount of perinephric fluid. The previously noted right renal calculus is no longer present. Left Kidney: Normal in size and shape. There is a 1.3 x 1.2 cm nonobstructing calculus with posterior shadowing noted kidney. There is no hydronephrosis or focal lesion. Bladder: Within normal limits given the degree of distension. Other: None. CONCLUSION: 1. 1.3 cm nonobstructing left renal calculus. 2. The previously noted right renal calculus is no longer present. There is no hydronephrosis. 3. The right kidney appears mildly atrophic with cortical thinning. 4. Small amount of fluid in the right perinephric region. Electronically signed by: Polo Haney MD Board Certified Radiologist 10/02/2018 7:41 PM EST
[2018-10-03] MEDS: Heparin - SQ 10,000 UNITS/ML Vial SQ SCH ×2 (03:47→15:19)
[2018-10-03] MEDS: Sod Chloride 0.9% Inj 1,000 ML IV.CONT SCH ×3 (03:48→17:40)
[2018-10-03] MEDS: Acetaminophen 325 MG Tablet PO PRN ×2 (04:22→21:44)
[2018-10-03 06:11] LABS: Baso % (Auto) 0.1 % (0.0-2.0); Eos % (Auto) 0.2 % (0.0-4.0); Hematocrit 40.5 % (39.0-51.0); Hemoglobin 13.8 gm/dL (13.0-17.0); Lymph # (Auto) 0.5 th/mm3 (1.0-4.8); Lymph % (Auto) 4.8 % (9.0-44.0); Mean Corpuscular HGB Conc 34.2 % (32.0-36.0); Mean Corpuscular Hemoglobin 32.5 pg (27.0-34.0); Mean Corpuscular Volume 94.9 fL (80.0-100.0); Mean Platelet Volume 7.6 fL (7.0-11.0); Mono # (Auto) 0.9 th/mm3 (0.0-0.9); Mono % (Auto) 9.2 % (0.0-8.0); Neut # (Auto) 8.1 th/mm3 (1.8-7.7); Neut % (Auto) 85.7 % (16.0-70.0); Platelet Count 119 th/mm3 (150-450); Red Blood Count 4.26 mil/mm3 (4.50-5.90); Red Cell Distribution Width 16.7 % (11.6-17.2); White Blood Count 9.4 th/mm3 (4.0-11.0)
[2018-10-03 06:24] LABS: Calcium 8.6 mg/dL (8.5-10.1); Carbon Dioxide 26.7 meq/L (21.0-32.0); Potassium 3.7 meq/L (3.5-5.1)
[2018-10-03 09:22] LABS: Hemoglobin A1c 5.4 % (4.3-6.0)
--- NOTE | 2018-10-03 10:55 | P.PNIM ---
Subjective Interval history: Follow-up visit sepsis, UTI. Patient seen and examined today laying in bed sleeping. Arousable to voice and commands. Also simple commands. Knows he is at [facility], he also knows that it is 2019. at the bedside. Discussed with holding off on some of patient's medications from home including Xanax, baclofen, tramadol. is agreeable. Patient continues to be on and off lethargic. states that at home, patient loves to sleep. Appears to be comfortable. Discussed with lab results. Physical Exam Vital signs: Vital Signs 10/02/18 11:04 10/02/18 11:12 10/02/18 11:27 Temperature 99 F Pulse Rate 95 H 96 H 96 H Respiratory Rate 16 20 18 Blood Pressure 116/65 116/65 Pulse Oximetry 89 L 94 L 93 L 10/02/18 12:38 10/02/18 13:30 10/02/18 14:31 Temperature Pulse Rate 102 H 91 H Respiratory Rate 14 20 Blood Pressure 124/57 L 131/60 Pulse Oximetry 95 95 95 10/02/18 14:36 10/02/18 16:00 10/02/18 20:00 Temperature 97.5 F L 98.6 F Pulse Rate 93 H 90 100 H Respiratory Rate 18 17 21 Blood Pressure 138/63 123/59 L 150/67 H Pulse Oximetry 97 91 L 96 10/03/18 00:00 10/03/18 04:00 10/03/18 08:00 Temperature 98.6 F 99.3 F 98.4 F Pulse Rate 96 H 108 H 93 H Respiratory Rate 21 21 17 Blood Pressure 119/58 L 173/79 H 122/58 L Pulse Oximetry 94 L 95 96 Intake & Output 10/02/18 10/03/18 10/03/18 18:59 06:59 18:59 Intake Total 600 / 600 1280 / 1280 Output Total 140 / 140 1025 / 1025 Balance 460 / 460 255 / 255 Weight 97.522 kg 100 kg Intake: IV 600 / 600 1000 / 1000 NS Inj 1,000 ML @ 84 mls/hr IV. 1000 / 1000 CONT .[id number] JUDY Rx#:[id number] NS Inj 500 ML @ 1000 mls/hr IV. 500 / 500 SIG BOLUS JUDY Rx#:[id number] Rocephin Inj 1,000 MG In NS Inj 100 / 100 100 ML @ 200 mls/hr IV.SIG ONCE ONE Rx#:[id number] Oral 280 / 280 Output: Urine 140 / 140 800 / 800 Stool 225 / 225 Other: # Voids 1 Weight On Admission 97.522 kg Narrative: GENERAL: This is a well-nourished, well-developed patient, in no apparent distress. SKIN: Warm and dry. HEENT: Normocephalic. Pupils equal round and reactive. Nose without bleeding. Airway patent. NECK: Trachea midline. CARDIOVASCULAR: Regular rate and rhythm without murmurs, gallops, or rubs. RESPIRATORY: Diminished bases. No wheezes, rales, or rhonchi. GASTROINTESTINAL: Abdomen soft, non-tender, nondistended. Bowel Sounds normoactive x4. MUSCULOSKELETAL: Extremities without clubbing, cyanosis, or edema. NEUROLOGICAL: Drowsy. Oriented to year, place, self, . No focal neuro deficit. Moves all extremities. Normal speech. Results - Labs CBC & Chem 7: 10/03/18 04:11 10/03/18 04:11 Laboratory Results - last 24 hr 10/02/18 10/02/18 10/02/18 11:30 11:33 11:33 WBC 15.8 H RBC 4.35 L Hgb 14.0 Hct 41.1 MCV 94.4 MCH 32.3 MCHC 34.2 RDW 16.4 Plt Count 147 L MPV 7.6 Neut % (Auto) 84.9 H Lymph % (Auto) 4.6 L [place] % (Auto) 10.2 H Eos % (Auto) 0.1 Baso % (Auto) 0.2 Neut # (Auto) 13.4 H Lymph # (Auto) 0.7 L [place] # (Auto) 1.6 H Eos # (Auto) 0.0 Baso # (Auto) 0.0 WBC Differential . Differential Comment Auto diff final Sodium 132 L Potassium 4.3 Chloride 98 Carbon Dioxide 24.7 Anion Gap 9 BUN 38 H Creatinine 3.68 H Estimated GFR 16 L Random Glucose 146 H Hemoglobin A1c Lactic Acid 1.0 Calcium 8.8 Magnesium 2.0 Total Bilirubin 0.9 AST 57 H ALT 27 Alkaline Phosphatase 79 Total Creatine Kinase 789 H CK-MB (CK-2) Less than 1.0 CK-MB (CK-2) % 0.1 Troponin I 0.06 H B-Natriuretic Peptide Total Protein 7.9 Albumin 2.8 L Lipase 55 L TSH 1.030 Urine Color Urine Clarity Urine pH Ur Specific [place] Urine Protein Urine Glucose (UA) Urine Ketones Urine Occult Blood Urine Nitrate Urine Bilirubin Urine Urobilinogen Ur Leukocyte Esterase Urine RBC Urine WBC Urine WBC Clumps Urine Bacteria Micro UA Comment Ur Microscopic Review Urine Culture Comments 10/02/18 10/02/18 10/02/18 11:33 11:33 12:20 WBC RBC Hgb Hct MCV MCH MCHC RDW Plt Count MPV Neut % (Auto) Lymph % (Auto) [place] % (Auto) Eos % (Auto) Baso % (Auto) Neut # (Auto) Lymph # (Auto) [place] # (Auto) Eos # (Auto) Baso # (Auto) WBC Differential Differential Comment Sodium Potassium Chloride Carbon Dioxide Anion Gap BUN Creatinine Estimated GFR Random Glucose Hemoglobin A1c Lactic Acid Calcium Magnesium Total Bilirubin AST ALT Alkaline Phosphatase Total Creatine Kinase CK-MB (CK-2) CK-MB (CK-2) % Troponin I B-Natriuretic Peptide 219 H Total Protein Albumin Lipase Cancelled TSH Urine Color Beth Urine Clarity Turbid H Urine pH 5.0 Ur Specific [place] 1.014 Urine Protein 100 H Urine Glucose (UA) Negative Urine Ketones Trace H Urine Occult Blood Moderate H Urine Nitrate Negative Urine Bilirubin Negative Urine Urobilinogen Less than 2 Ur Leukocyte Esterase Large H Urine RBC 11 H Urine WBC Urine WBC Clumps Many H Urine Bacteria Many H Micro UA Comment Culture indicated Ur Microscopic Review Not Reportable Urine Culture Comments Culture indicated 10/03/18 10/03/18 10/03/18 04:11 04:11 04:11 WBC 9.4 RBC 4.26 L Hgb 13.8 Hct 40.5 MCV 94.9 MCH 32.5 MCHC 34.2 RDW 16.7 Plt Count 119 L MPV 7.6 Neut % (Auto) 85.7 H Lymph % (Auto) 4.8 L [place] % (Auto) 9.2 H Eos % (Auto) 0.2 Baso % (Auto) 0.1 Neut # (Auto) 8.1 H Lymph # (Auto) 0.5 L [place] # (Auto) 0.9 Eos # (Auto) 0.0 Baso # (Auto) 0.0 WBC Differential . Differential Comment Auto diff final Sodium 137 Potassium 3.7 Chloride 101 Carbon Dioxide 26.7 Anion Gap 9 BUN 41 H Creatinine 3.24 H Estimated GFR 19 L Random Glucose 114 H Hemoglobin A1c 5.4 Lactic Acid Calcium 8.6 Magnesium Total Bilirubin AST ALT Alkaline Phosphatase Total Creatine Kinase CK-MB (CK-2) CK-MB (CK-2) % Troponin I B-Natriuretic Peptide Total Protein Albumin Lipase TSH Urine Color Urine Clarity Urine pH Ur Specific [place] Urine Protein Urine Glucose (UA) Urine Ketones Urine Occult Blood Urine Nitrate Urine Bilirubin Urine Urobilinogen Ur Leukocyte Esterase Urine RBC Urine WBC Urine WBC Clumps Urine Bacteria Micro UA Comment Ur Microscopic Review Urine Culture Comments - Imaging Impressions Abdomen/Bladder Ultrasound 10/02/18 00:00 CONCLUSION: 1. 1.3 cm nonobstructing left renal calculus. 2. The previously noted right renal calculus is no longer present. There is no hydronephrosis. 3. The right kidney appears mildly atrophic with cortical thinning. 4. Small amount of fluid in the right perinephric region. Chest X-Ray 10/02/18 11:29 CONCLUSION: Mild congestive failure without significant effusion or consolidation. Head CT 10/02/18 11:29 CONCLUSION: Slight chronic small vessel ischemic and atrophic changes. Assessment and Plan - Plan Mr. Carlos is a pleasant 72-year-old male with a history of coronary artery disease status post CABG, recent UTI with sepsis who presents to the emergency department on 10/02/2018 due to worsening weakness as well as recurrent falls in the last 3 days prior to this admission. Patient had subjective fever and briefly complained of left flank pain. Sepsis (pulse 93, WBC 15.8 K, UTI) Urinary tract infection ceftriaxone 1 g every 24 hours. Follow urine culture and sensitivity. Cultures growing group B streptococcus. -Afebrile overnight. WBC trending down. Delirium, encephalopathy possibly secondary to sepsis -Hold off baclofen, Xanax, tramadol home meds -Reorientation. Monitor for now Acute on chronic kidney disease Chronic kidney disease stage III Creatinine elevated to 3.68. Baseline appears to be around 1.5-2. gentle hydration. Consider nephrology consultation, previously followed by Dr. Campbell. Has not followed up in the outpatient US Bladder/abd/Kidney showed 1.3 cm nonobstructing left renal calculus. The previously noted right renal calculus is no longer present. There is no hydronephrosis. The right kidney appears mildly atrophic with cortical thinning. Small amount of fluid in the right perinephric region. Coronary artery disease Status post CABG in June 2018. Continue aspirin. Patient cannot tolerate statin. -On IV fluids, monitor for fluid overload Hyperglycemia Patient does not take any diabetic medications. Nutrition Speech therapy evaluation. -Thin liquids, regular diet Generalized weakness -PT/OT eval and treat Full code. Heparin subcutaneous for DVT prophylaxis. Discussed Condition With: Patient, nursing, Discharge Planning: Plan to discharge when clinically improved. Possible [facility] versus SNF versus home health care
[2018-10-03] MEDS: Ezetimibe 10 MG Tablet PO SCH (12:36)
[2018-10-03] MEDS: Pantoprazole Sodium 20 MG DR Tablet PO SCH (12:36)
[2018-10-03] MEDS: Escitalopram 10 MG Tablet PO SCH (12:37)
[2018-10-03] MEDS: Metoprolol Tartrate 25 MG Tablet PO SCH (21:44)
[2018-10-04] MEDS: Heparin - SQ 10,000 UNITS/ML Vial SQ SCH ×2 (03:57→18:16)
[2018-10-04 06:04] LABS: Hematocrit 36.1 % (39.0-51.0); Hemoglobin 12.2 gm/dL (13.0-17.0); Mean Corpuscular HGB Conc 33.9 % (32.0-36.0); Mean Corpuscular Hemoglobin 31.9 pg (27.0-34.0); Mean Corpuscular Volume 94.2 fL (80.0-100.0); Mean Platelet Volume 7.4 fL (7.0-11.0); Platelet Count 122 th/mm3 (150-450); Red Blood Count 3.83 mil/mm3 (4.50-5.90); Red Cell Distribution Width 16.3 % (11.6-17.2); White Blood Count 8.4 th/mm3 (4.0-11.0)
[2018-10-04 06:23] LABS: Calcium 8.3 mg/dL (8.5-10.1); Carbon Dioxide 23.7 meq/L (21.0-32.0); Potassium 3.4 meq/L (3.5-5.1)
[2018-10-04] MEDS: Metoprolol Tartrate 25 MG Tablet PO SCH ×2 (08:22→21:15)
[2018-10-04] MEDS: Escitalopram 10 MG Tablet PO SCH (08:22)
[2018-10-04] MEDS: Pantoprazole Sodium 20 MG DR Tablet PO SCH (08:22)
[2018-10-04] MEDS: Ezetimibe 10 MG Tablet PO SCH (08:23)
--- NOTE | 2018-10-04 10:25 | P.PNIM ---
Subjective Interval history: Follow-up visit sepsis, UTI. Patient seen and examined today. at the bedside. Patient is irritable. Awake and alert. Responsive. Follows commands. States he could not get some sleep last night sleep this morning. states patient is improving. Usually takes Xanax in the morning to relieve irritability and help out with his Lexapro. will restart Xanax in the morning outpatient. Denies pain and discomfort. Denies SOB/ dyspnea. Denies chest pain, palpitations, headaches, dizziness. Denies fevers, chills, n/ v/d. Denies dysuria. Physical Exam Vital signs: Vital Signs 10/03/18 12:00 10/03/18 14:20 10/03/18 16:00 Temperature 98.2 F 97.8 F 98.0 F Pulse Rate 83 99 H 103 H Respiratory Rate 18 15 18 Blood Pressure 127/67 159/70 H 141/70 H Pulse Oximetry 96 98 96 10/03/18 20:00 10/04/18 00:00 10/04/18 04:00 Temperature 97.5 F L 97.9 F 98.1 F Pulse Rate 91 H 74 97 H Respiratory Rate 18 18 18 Blood Pressure 134/59 L 136/67 156/74 H Pulse Oximetry 95 95 94 L 10/04/18 08:00 Temperature 98.0 F Pulse Rate 88 Respiratory Rate 18 Blood Pressure 138/60 Pulse Oximetry 94 L Intake & Output 10/03/18 10/04/18 10/04/18 18:59 06:59 18:59 Intake Total 1360 / 1360 1000 / 1000 Output Total 1125 / 1125 1050 / 1050 Balance 235 / 235 -50 / -50 Weight 101.9 kg Intake: IV 860 / 860 1000 / 1000 NS Inj 1,000 ML @ 84 mls/hr IV. 760 / 760 1000 / 1000 CONT .[id number] JUDY Rx#:[id number] Rocephin Inj 1,000 MG In NS Inj 100 / 100 100 ML @ 200 mls/hr IV.SIG Q24H JUDY Rx#:[id number] Oral 500 / 500 Output: Urine 950 / 950 1050 / 1050 Urine/Stool Mix 175 / 175 Other: Date of Last Bowel Movement 10/03/18 Narrative: GENERAL: This is a well-nourished, well-developed patient, in no apparent distress. SKIN: Warm and dry. HEENT: Normocephalic. Pupils equal round and reactive. Nose without bleeding. Airway patent. NECK: Trachea midline. CARDIOVASCULAR: Regular rate and rhythm without murmurs, gallops, or rubs. RESPIRATORY: Diminished bases. No wheezes, rales, or rhonchi. GASTROINTESTINAL: Abdomen soft, non-tender, nondistended. Bowel Sounds normoactive x4. Colostomy in place active. MUSCULOSKELETAL: Extremities without clubbing, cyanosis, or edema. NEUROLOGICAL: Awake and alert. Irritable. No focal neuro deficit. Moves all extremities. Normal speech. Results - Labs CBC & Chem 7: 10/04/18 05:16 10/04/18 05:16 Laboratory Results - last 24 hr 10/02/18 10/04/18 10/04/18 12:20 05:16 05:16 WBC 8.4 RBC 3.83 L Hgb 12.2 L Hct 36.1 L MCV 94.2 MCH 31.9 MCHC 33.9 RDW 16.3 Plt Count 122 L MPV 7.4 Sodium 141 Potassium 3.4 L Chloride 107 Carbon Dioxide 23.7 Anion Gap 10 BUN 36 H Creatinine 2.63 H Estimated GFR 24 L Random Glucose 140 H Calcium 8.3 L Urine Color Beth Urine Clarity Turbid H Urine pH 5.0 Ur Specific [place] 1.014 Urine Protein 100 H Urine Glucose (UA) Negative Urine Ketones Trace H Urine Occult Blood Moderate H Urine Nitrate Negative Urine Bilirubin Negative Urine Urobilinogen Less than 2 Ur Leukocyte Esterase Large H Urine RBC 11 H Urine WBC Urine WBC Clumps Many H Urine Bacteria Many H Micro UA Comment Culture indicated Urine Culture Comments Culture indicated Microbiology 10/02/18 12:20 Clean Catch Urine Urine Culture - Final Enterococcus faecalis 10/02/18 11:30 Blood - Peripheral Aerobic Blood Culture - Preliminary No growth in 1 day 10/02/18 11:30 Blood - Peripheral Anaerobic Blood Culture - Preliminary No growth in 1 day 10/02/18 11:40 Blood - Peripheral Aerobic Blood Culture - Preliminary No growth in 1 day 10/02/18 11:40 Blood - Peripheral Anaerobic Blood Culture - Preliminary No growth in 1 day Assessment and Plan - Plan Mr. Carlos is a pleasant 72-year-old male with a history of coronary artery disease status post CABG, recent UTI with sepsis who presents to the emergency department on 10/02/2018 due to worsening weakness as well as recurrent falls in the last 3 days prior to this admission. Patient had subjective fever and briefly complained of left flank pain. Sepsis (pulse 93, WBC 15.8 K, UTI) Urinary tract infection Follow urine culture and sensitivity. Cultures grew enterococcus faecalis, sensitive to Cipro -On ceftriaxone every 24 hours, will switch over to Cipro Q24 -Afebrile overnight. WBC trending down. Delirium, encephalopathy possibly secondary to sepsis -Hold off baclofen,tramadol home meds -Reorientation -Improved Acute on chronic kidney disease Chronic kidney disease stage III Creatinine elevated to 3.68. Baseline appears to be around 1.5-2. gentle hydration completed Consider nephrology consultation, previously followed by Dr. Campbell. Has not followed up in the outpatient US Bladder/abd/Kidney showed 1.3 cm nonobstructing left renal calculus. The previously noted right renal calculus is no longer present. There is no hydronephrosis. The right kidney appears mildly atrophic with cortical thinning. Small amount of fluid in the right perinephric region. -Improved, near baseline. Monitor intermittent Coronary artery disease Status post CABG in June 2018. Continue aspirin. Patient cannot tolerate statin. Hyperglycemia Patient does not take any diabetic medications. -Hemoglobin A1c 5.4. Possibly stress related hyperglycemia. Nutrition Speech therapy evaluation. -Thin liquids, regular diet Generalized weakness -PT/OT eval and treat Heparin subcutaneous, requested to hold off on heparin since patient has colostomy and usually the problem with heparin is that capillary bleed surrounding area of the stoma which they have encountered prior, discussed risk of T, verbalized understanding states that previous hospitalization USE OF ONLY SCDs for DVT prophylaxis. SCDs. Full code Discussed Condition With: Patient, , nursing Discharge Planning: Plan to discharge when clinically improved. Possible [facility] versus SNF versus home health care
[2018-10-04] MEDS: FERROUS FUMARATE PO SCH (10:40)
[2018-10-04] MEDS: Ciprofloxacin 400 MG/200 ML 400 MG/200 ML PIGGYBACK IV.SIG SCH (11:03)
[2018-10-04] MEDS: ALPRAZolam 0.5 MG Tablet PO SCH (11:04)
[2018-10-05 05:10] LABS: Calcium 8.6 mg/dL (8.5-10.1); Carbon Dioxide 24.6 meq/L (21.0-32.0); Potassium 3.5 meq/L (3.5-5.1)
--- NOTE | 2018-10-05 07:34 | P.DS ---
Date of admission: 10/02/18 13:30 Primary care physician: Mathew Sandoval DO Attending physician on discharge: oYrdan Sandoval Anticipated date of discharge: 10/05/18 Brief History from admission: Mr. Carlos is 72 year old male with a recent CABG (06/2018), recent UTI with sepsis who presents to the ED on 10/02/2018 due to worsening weakness, delirium that started about 3 days prior to this admission. Over the last 2 days, patient has been falling frequently and feeling very weak. He was also noted to have significant changes in his mental status. He had low-grade fever at home. He also complained of left-sided flank pain for a day but that resolved. At the time of this interview, patient is resting in bed. He is able to follow simple commands. No changes in bowel habits. Patient does not have any chest pain, shortness of breath. Past medical history: Coronary artery disease, hyperlipidemia, hypertension, previous sepsis due to UTI Past surgical history: CABG x3. Social history: Patient does not smoke. Drinks alcohol socially. Family history: Both parents with heart disease. Patient update on day of discharge: Follow-up visit sepsis secondary to urinary tract infection, acute kidney injury on chronic kidney disease. Patient seen and examined today. at the bedside. Patient reports he is doing okay. He has been eating his breakfast. As per , patient continues to have confusion has been calling her all night and leaving her messages on the phone and even text messages. Discussed with confusion may continue despite he is getting better with the urinary tract infection, possible contributing factor is delirium being at the hospital. He would benefit with rehabilitation inpatient. He will transfer out to [facility] today. He will continue Cipro but will be switching over to p.o. Cipro instead of IV. DS: Medications - Discharge Medications Prescriptions: ciprofloxacin HCl [Cipro] 500 mg PO Q18H #5 tab ciprofloxacin in 5 % dextrose 400 mg IV Q24H 4 Days #800 ml DS: Summary Hospital Course: Mr. Carlos is a pleasant 72-year-old male with a history of coronary artery disease status post CABG, recent UTI with sepsis who presents to the emergency department on 10/02/2018 due to worsening weakness as well as recurrent falls in the last 3 days prior to this admission. Patient had subjective fever and briefly complained of left flank pain. Patient found to be sepsis secondary to urinary tract infection. Initially placed on ceftriaxone. Sensitivities came back with Enterococcus faecalis sensitive to Cipro. Patient switch over to Cipro IV, to be switched to p.o. Cipro every 24 hours or lower dose twice daily secondary to chronic kidney disease. Patient has been afebrile and WBC has been trending down. Patient initially had delirium, encephalopathy possibly secondary to sepsis. This is significantly improved. Patient is more awake and responsive. Occasionally irritable. Acute kidney injury on chronic kidney disease secondary to possibly sepsis. Creatinine was elevated to 3.6 on admission. His baseline appears to be 1.5-2. His creatinine has been trending down. US bladder/abdominal/kidney ultrasound showed 1.3 cm nonobstructing left renal calculus.The previously noted right renal calculus is no longer present. There is no hydronephrosis. The right kidney appears mildly atrophic with cortical thinning. Small amount of fluid in the right perinephric region. Patient has been following up with urologist and outpatient and the stone has been known to the . Chronic condition includes coronary artery disease, status post CABG in June 2018. Patient should continue to use aspirin. Unable to tolerate statin. Had hyperglycemia during this admission possibly secondary to stress related hyperglycemia under septicemia. Hemoglobin A1c 5.4. Patient has generalized weakness, as per , has been falling at home. Will need extensive rehabilitation. Recommended for [facility]. Speech therapy has also evaluated the patient and has cleared him for thin liquids, regular diet. He was on heparin subcutaneous for DVT prophylaxis. requested to hold off on heparin since patient has colostomy and usually the problem with heparin is that capillary bleed surrounding area of the stoma which they have encountered prior discussed risk of DVT, verbalized understanding states that previous hospitalization USE OF ONLY SCDs for DVT prophylaxis. - Time Spent with Patient Total time spent providing and/or coordinating discharge services: Greater than 30 minutes - Quality: VTE Deep Vein Thrombosis/Pulmonary Embolism Present on Admission: No Exam Vital signs: Vital Signs 10/04/18 08:00 10/04/18 12:00 10/04/18 16:00 Temperature 98.0 F 98.0 F 97.8 F Pulse Rate 88 85 92 H Respiratory Rate 19 Blood Pressure 138/60 156/76 H 151/69 H Pulse Oximetry 94 L 94 L 92 L 10/04/18 20:00 10/05/18 00:00 10/05/18 04:00 Temperature 97.6 F 97.6 F 98.9 F Pulse Rate 84 89 92 H Respiratory Rate 18 18 18 Blood Pressure 160/73 H 162/82 H 150/75 H Pulse Oximetry 94 L 92 L 93 L Intake & Output 10/04/18 10/05/18 10/05/18 18:59 06:59 18:59 Intake Total 800 / 800 Output Total 1500 / 1500 800 / 800 Balance -700 / -700 -800 / -800 Weight 100.9 kg Intake: IV 200 / 200 Cipro 400 MG/200 ML Inj 400 mg 200 / 200 In 200 ml @ 200 mls/hr IV.SIG Q24H JUDY Rx#:[id number] Oral 600 / 600 Output: Urine 1000 / 1000 800 / 800 Stool Amount (Stoma) 500 / 500 Mid Upper Abdomen 500 / 500 Other: Date of Last Bowel Movement 10/04/18 Narrative: GENERAL: This is a well-nourished, well-developed patient, in no apparent distress. SKIN: Warm and dry. HEENT: Normocephalic. Pupils equal round and reactive. Nose without bleeding. Airway patent. NECK: Trachea midline. CARDIOVASCULAR: Regular rate and rhythm without murmurs, gallops, or rubs. RESPIRATORY: Diminished bases. No wheezes, rales, or rhonchi. GASTROINTESTINAL: Abdomen soft, non-tender, nondistended. Bowel Sounds normoactive x4. Colostomy in place active. MUSCULOSKELETAL: Extremities without clubbing, cyanosis, or edema. NEUROLOGICAL: Awake and alert. No focal neuro deficit. Moves all extremities. Normal speech. Results Procedures completed during hospitalization: None Labs on day of discharge: Labs from last 24 hours 10/05/18 04:30 Sodium 139 Potassium 3.5 Chloride 105 Carbon Dioxide 24.6 Anion Gap 9 BUN 34 H Creatinine 2.44 H Estimated GFR 26 L Random Glucose 163 H Calcium 8.6 Preliminary micro results at discharge 10/02/18 11:30 Aerobic Blood Culture - Preliminary Blood - Peripheral No growth in 2 days Anaerobic Blood Culture - Preliminary No growth in 2 days 10/02/18 11:40 Aerobic Blood Culture - Preliminary Blood - Peripheral No growth in 2 days Anaerobic Blood Culture - Preliminary No growth in 2 days - Impressions ITS Impressions Abdomen/Bladder Ultrasound 10/02/18 00:00 CONCLUSION: 1. 1.3 cm nonobstructing left renal calculus. 2. The previously noted right renal calculus is no longer present. There is no hydronephrosis. 3. The right kidney appears mildly atrophic with cortical thinning. 4. Small amount of fluid in the right perinephric region. Chest X-Ray 10/02/18 11:29 CONCLUSION: Mild congestive failure without significant effusion or consolidation. Head CT 10/02/18 11:29 CONCLUSION: Slight chronic small vessel ischemic and atrophic changes. Discharge Plan - Discharge Disposition Patient Disposition: [facility] Inpatient - Discharge Condition Condition: Stable - Discharge Order Discharge Orders: Discharge Order (Routine); Ordered 10/05/18 Ordered By: Brain Morris - Discharge Details Discharge Comment: TREV HENNING Cip[facility]. - Physicians Team Primary Care Provider: Mathew Sandoval Attending Provider: Yordan Sandoval
[2018-10-05] MEDS ORDERED: Metoprolol Tartrate 25 MG Tablet PO ONE (07:50)
[2018-10-05] MEDS: Pantoprazole Sodium 20 MG DR Tablet PO SCH (08:41)
[2018-10-05] MEDS: ALPRAZolam 0.5 MG Tablet PO SCH (08:41)
[2018-10-05] MEDS: Ezetimibe 10 MG Tablet PO SCH (08:41)
[2018-10-05] MEDS: Escitalopram 10 MG Tablet PO SCH (08:41)
[2018-10-05 08:56] VITALS: BP 147/74; PULSE 87; RESP 16; TEMP 97.1; O2SAT 94
[2018-10-05] MEDS: FERROUS FUMARATE PO SCH (10:49)
[2018-10-05] MEDS: Ciprofloxacin 400 MG/200 ML 400 MG/200 ML PIGGYBACK IV.SIG SCH (13:25)
== END 2018-10-05 11:29 | DRG 872 ==
LOC: NEPE 10:58 → NEDA 13:30 → N07 15:18
PROVIDERS: ADMIT Hospitalist; ATTEND Hospitalist
CPT/HCPCS: 70450; 71010; 71045; 76775; 80048; 80053; 81001; 82550; 82552; 83036; 83520; 83605; 83690; 83735; 83880; 84443; 84484; 85025; 85027; 87040; 87077; 87086; 87186; 90774; 90784; 92526; 92610; 93005; 96374; 97162; 97167; 99285; C8952; G0195; J0696; J0744; J1644; J7030; J7040; P9612